=== PATIENT | female | born 1955 | race Caucasian/White ===

== ENCOUNTER 2020-01-13 12:30 | Inpatient (IN) | payer MEDICARE, MEDICAID, SELFPAY ==
[2020-01-13] VITALS (14 sets, daily range): BP systolic 100–125; BP diastolic 46–74; PULSE 59–69; RESP 15–21; TEMP 36.1–37.1; O2SAT 82–99; BMI 33.7
--- NOTE | ~2020-01-13 | XR_ITS ---
XR chest 1V portable DATE: 01/13/2020 13:15 INDICATION: Covid 19. History of lobectomy. TECHNIQUE: Portable upright AP chest on 01/13/2020 at 1309 hours COMPARISON: 03/03/2015 portable AP chest at 2225 hours FINDINGS: There is volume loss of the left lung and asymmetric prominence in the left perihilar area; there is history of previous lobectomy. The appearance may be postsurgical. Residual or recurrent ne oplasm or adenopathy cannot be excluded based upon this limited single portable radiographic view. There is diffuse interstitial infiltrate throughout most of the right lung, sparing only the apical a ramirez. Heart size is borderline enlarged. Is aortic calcification. The right-sided infiltrate is new since , suggesting acute interstitial pneumonitis. Interstitial edema is an additional consideratio n. There is mild prominence of the minor fissure. No pleural effusion is noted. Diffuse osteopenia IMPRESSION: Interstitial infiltrate throughout most of the right lung, relatively sparing only the ap ex; findings suggest interstitial pneumonitis (pneumonia) versus interstitial edema. Postoperative change on the left with asymmetric prominence of the left hilum; this may be postsurgic al change, but recurrent or new left hilar mass or adenopathy is not excluded based upon this limited single portable radiographic view Reviewed, dictated and finalized at location [facility]. ECT MANAGER/TEAM COACH IMPRESSION: Interstitial infiltrate throughout most of the right lung, relative ly sparing only the apex; findings suggest interstitial pneumonitis (pneumonia) versus interstitial edema. Postoperative change on the left with asymmetric prominence of the left hilum; this may be postsurgical change, but recurrent or new left hilar mass or adenop athy is not excluded based upon this limited single portable radiographic view
--- NOTE | ~2020-01-13 | CT_ITS ---
EXAMINATION: CTA chest PE protocol DATE: 01/13/2020 13:58 INDICATION: Shortness of breath for 3 days, cough. Covid-positive. History of lobectomy. TECHNIQUE: Computed tomography angiography (CTA) of the chest was performed with 100 mL Omnipaque-350 intravenous contrast timed to evaluate the pulmonary arteries. Coronal maximum intensity projection 3D-reconstructions were created by the technologist. Automated exposure control and iterative reconst ruction technique were employed. Exam dose: 780.71 mGy-cm total exam DLP. COMPARISON: 01/13/2020 portable AP chest FINDINGS: There is diagnostic contrast enhancement of the pulmonary arteries and no evidence of pulmo nary embolism. Status post left upper lobectomy. There is prominent soft tissue density in the left perihilar, which may be due to perihilar postoperative radiation fibrosis; recurrent or new perihilar malignancy is n ot excluded. There is soft tissue prominence in the subcarinal area and right hilum, consistent with mild to moderate subcarinal and right hilar lymphadenopathy; differential diagnosis includes reactive lymphadenopathy secondary to pneumonia versus metastatic disease as well as lymphoma.. Comparison wi th prior CT examinations is recommended. Consider PET/CT scan as clinically appropriate after resolut ion of the current infiltrates. The thyroid gland appears normal. There is atherosclerotic change of the thoracic and abdominal aorta and at the origins of celiac and superior mesenteric arteries. No thoracic aortic aneurysm or dissec tion is detected. There are extensive reticular cystic appearing interstitial infiltrates with predilection for the per iphery of the lung guzmán, involving right upper, middle and lower lobes. There is mild peripheral in terstitial infiltrate of the left lower lobe. Mild to moderate sliding hiatal hernia. Status post cholecystectomy. Degenerative spurring of the thoracic spine. No suspicious osteolytic or osteoblastic lesions are not ed. IMPRESSION: Extensive predominantly peripheral interstitial reticular infiltrates of the lungs, righ t greater than left No evidence of pulmonary embolism Left perihilar soft tissue thickening which may be secondary to radiation treatment. Recurrent or new malignancy or adenopathy are not excluded. Subcarinal and right hilar mild lymphadenopathy;differential diagnosis includes reactive lymphadenopa thy from pneumonia versus metastatic disease or lymphoma Reviewed, dictated and finalized at [facility]. Reviewed, dictated and finalized at location A. IRING CALIBRATOR IMPRESSION: Extensive predominantly peripheral interstitial reticular infiltra erik of the lungs, right greater than left No evidence of pulmonary embolism Left perihilar soft tissue thickening which may be secondary to radiation treat ment. Recurrent or new malignancy or adenopathy are not excluded. Subcarinal and right hilar mild lymphadenopathy;differential diagnosis includes reactive lymphadenopathy from pneumonia versus metastatic disease or lymphoma
--- NOTE | 2020-01-13 12:34 | ED.SOB ---
HPI - SOB/Dyspnea General Chief Complaint: Shortness of Breath/Dyspnea Stated Complaint: COVID+ SOB HX COPD Time Seen by Provider: 01/13/20 12:34 Source: patient Mode of arrival: wheelchair Limitations: no limitations History of Present Illness HPI Narrative: Patient is a 64-year-old female with a history of lung cancer, lobectomy, recent hip surgery at [facility] earlier this month, recent diagnosis of Covid on January 07, who presents for evaluation of increased shortness of breath. Patient states she has been unable to catch her breath with any activity. She has had increased work of breathing especially worse with exertion. She is denying any chest pain. Intermittent fever, chills, nausea. Diarrhea she had last week has now resolved. Patient denies any loss of sense of taste or smell but does report decreased oral intake, states due to the nausea she has only been able to tolerate minimal fluids and crackers over the past 2 weeks. Patient with numerous sick contacts in her family including a significant other who is currently admitted to this hospital, 5+ family contacts including her daughter. Related Data Allergies Allergy/AdvReac Type Severity Reaction Status Date / Time No Known Allergies Allergy Verified 01/13/20 12:55 Review of Systems Review of Systems: Narrative: CONSTITUTIONAL: Remittent fever and chills EYES: Denies visual changes, redness, or discharge. ENT: Reports mild rhinorrhea and congestion CARDIOVASCULAR: Denies chest pain, palpitations, or edema. RESPIRATORY: Reports dry cough and shortness of breath GASTROINTESTINAL: Denies abdominal pain, reports nausea, diarrhea has resolved GENITOURINARY: Denies dysuria or hematuria. SKIN: Denies rash or itching. MUSCULOSKELETAL: Denies back pain, joint pain, or myalgia. NEUROLOGIC: Reports feeling diffusely weak PMFSH Past Medical History Medical History (Updated 01/13/20 @ 14:47 by Adeline Sprague MD) COPD (chronic obstructive pulmonary disease) Fibromyalgia Lung cancer Pulmonary embolism Surgical History Surgical History (Updated 01/13/20 @ 12:54 by Adeline Sprague MD) Status post hip surgery Status post partial lobectomy of lung Social History Social History (Updated 01/13/20 @ 12:54 by Adeline Sprague MD) Smoking status: Former smoker Alcohol intake: never Substance use: never Living arrangements: with family Gender identity (if verbalized by the patient): Female Course Vital Signs Vital signs: Vital Signs Pulse Rate 69 01/13/20 12:43 Respiratory Rate 19 01/13/20 12:43 Temperature 37.1 C 01/13/20 12:51 Pulse Rate 65 01/13/20 13:32 Respiratory Rate 21 H 01/13/20 13:32 Blood Pressure 121/61 01/13/20 13:32 Pulse Oximetry 92 01/13/20 13:32 MDM - SOB/Dyspnea MDM Narrative Medical decision making narrative: Patient presented for evaluation of shortness of breath, in the setting of recent Covid diagnosis. The time of assessment, patient is hypoxic, no tachycardia, afebrile. Patient is dehydrated appearing. IV access obtained and labs are drawn. Patient was placed on 4 L via nasal cannula with improvement in oxygenation. Patient laboratory results notable for anemia. Pt denying any dark tarry stools. This may be secondary to anemia chronic disease concurrent with recent surgery/hospitalization. Pt with chronic kidney disease. Hyponatremia. Mild metabolic acidosis without elevation in anion gap or evidence of DKA. Likely this is all secondary to patient's decreased oral intake and dehydration. Patient chest x-ray with chronic findings consistent with left lobectomy, patchy bilateral infiltrates. CTA shows no evidence for PE. I wanted to obtain this given patient's recent surgical history and decreased mobility. Patient to be admitted to hospitalist service for hyponatremia, dehydration, hypoxic respiratory failure in setting of Covid viral illness. Differential Diagnosis Differential diag
--- NOTE | 2020-01-13 12:51 | ECG_ITS ---
Measurements Intervals [place] Rate: 58 P: 79 DE: 154 QRS: -4 QRSD: 105 T: 65 QT: 402 QTc: 397 Interpretive Statements SINUS BRADYCARDIA DELAYED PRECORDIAL R/S TRANSITION BASELINE ARTIFACT- I, II, III, AVR, AVL, AVF BORDERLINE ECG Electronically Signed On 01-13-2020 16:08:35 DRYWALL STRIPPER HELPER by Chato Edwards D.O.
[2020-01-13] MEDS: ONDANSETRON INJ 4 MG/2 ML VIAL IV PUSH (13:05)
[2020-01-13] MEDS: SODIUM CHLORIDE 0.9% IV 500 ML 999 ML IV CONT (13:06)
[2020-01-13 13:09] LABS: Alveolar/Arterial O2 Gradient 200.4 mmHg; Base Excess ABG -4.8 mEq/l (+/-2.0); Carboxyhemoglobin 0.6 % THb (0-2.0); Fractional Inspired Oxygen 44 %; HCO3 ABG 19.4 mEq/l (22.0-26.0); Methemoglobin ABG 0.1 %THb (0-1.5); Oxygen Content ABG 11.7 %vol (16.0-22.0); Oxygen Saturation ABG 95.5 % (95.0-100.0); Oxyhemoglobin 93.7 % THb (90.0-100.0); PCO2 ABG 32.2 mmHg (35.0-45.0); PO2 ABG 76.6 mmHg (80.0-100.0); PO2 FiO2 Ratio Arterial Blood 1.74 %; Reduced Hemoglobin 5.6 %THb (0-5.0); Total Hemoglobin 8.8 g/dL (12.0-18.0); pH ABG 7.397 (7.350-7.450)
[2020-01-13 13:10] LABS: Device NASAL CANNULA; Site Drawn LEFT BRACHIAL
[2020-01-13 13:21] LABS: Basophils Percent Auto 0.2 % (0.2-1.2); Hematocrit 26.9 % (37.0-47.0); Hemoglobin 8.4 g/dL (12.0-15.0); Immature Granulocyte Absolute 0.03 K/mm3 (0.00-0.031); Immature Granulocyte Percent A 0.7 % (0-0.5); Lymphocytes Absolute Auto 0.67 K/mm3 (0.9-3.2); Mean Corpuscular HGB Conc 31.2 g/dl (32-36); Mean Corpuscular Hemoglobin 25.8 pg (26-34); Mean Corpuscular Volume 82.8 fl (80-100); Mean Platelet Volume 9.6 fl (7.4-10.4); Monocytes Absolute Auto 0.6 K/mm3 (0.1-0.6); Neutrophils Absolute Auto 3.2 K/mm3 (1.3-6.7); Neutrophils Percent Auto 71.1 % (45.5-73.1); Platelet Count Result 295 k/mm3 (150-375); Red Blood Count 3.25 M/mm3 (4.2-5.4); Red Cell Distribution Width 19.6 % (11.5-14.5); White Blood Count 4.5 K/mm3 (4.5-10.0)
[2020-01-13 13:35] LABS: Lactate Dehydrogenase 891 U/L (313-618); Prothrombin Time 13.4 Seconds (11.1-14.7)
[2020-01-13 13:36] LABS: Partial Thromboplastin Time 27.9 SECONDS (22.3-36.8)
[2020-01-13 13:38] LABS: Alanine Aminotransferase 10 U/L (4-35); Albumin Level 3.5 g/dL (3.5-5.1); Alkaline Phosphatase 93 U/L (38-126); Anion Gap 12 mmol/L (8-16); Aspartate Amino Transferase 39 U/L (14-36); Bilirubin,Total 0.8 mg/dL (0.2-1.3); Blood Urea Nitrogen 26 mg/dL (7-17); CRP 7.6 mg/dL (<1.0); Calcium 8.5 mg/dL (8.4-10.2); Carbon Dioxide 20 mmol/L (22-30); Chloride 93 mmol/L (98-107); Estimated CRCL calculation 39 ml/min; Estimated Glomerular Filt Rate 32; Glucose 124 mg/dL (65-105); Potassium 4.4 mmol/L (3.4-5.0); Sodium 125 mmol/L (137-145)
[2020-01-13 13:45] LABS: Troponin I < 0.012 ng/mL (0.000-0.034)
--- NOTE | 2020-01-13 19:03 | PC.NURSE ---
[id number] This patient, Graciela Alberto, was admitted to 3 [facility] Surg Room 322-01. Patient/family oriented to hospital policies and general routines including ID bracelet, bed and alarms, visiting hours, pain management, procedures, bathroom and other care routines, personal items, smoking policy, room service/diet, and visiting hours. Information on how to activate the Rapid Response Team has been discussed. Patient/Family are encouraged to report perceived risks to care and to ask questions if they do not understand what they are told or what they should do.
--- NOTE | 2020-01-13 22:00 | PM.IMHP ---
H&P: HPI History of Present Illness Date/Time: 01/13/20 22:00 Chief complaint: Shortness of breath, COVID positive on 01/06/20. Narrative: Graciela Alberto is a 64-year-old female, former heavy smoker, with history of lung cancer status post left upper lobectomy, pulmonary embolism, rheumatoid arthritis on immunosuppressants, hypertension, and COPD visit to the emergency department earlier today via private vehicle from home with complaints of shortness of breath. About 3 weeks ago she had her left hip replaced per Dr. Louis at [facility] and she has been doing pretty well in that regard. Unfortunately about a week and a half ago she began demonstrating symptoms of COVID to include headache, sinus congestion, decreased appetite, diarrhea, nonproductive cough, and shortness of breath. Her significant other and several other family members have COVID, and she indeed tested positive on 01/06/2020. Over the past couple of days she has had progressive dyspnea on lesser and lesser exertion and is just feeling weak and dehydrated, reportedly she has only been able to tolerate minimal fluids and some crackers were the last week or so. She has not had a recent fever and denies headache, sore throat, rash, chest pain, pleuritic pain, orthopnea, PND, lower extremity edema, and vomiting. Review of Systems Review of Systems: Narrative: Twelve systems were reviewed with pertinent positives and negatives as per HPI. She has not had a fever for several days. She is currently taking an iron supplementation, presumably from acute blood loss anemia from her recent hip replacement. She is taking Xarelto for DVT prophylaxis, and has not noticed any blood in her stools. No abdominal or epigastric pain. She denies bloating. No significant indigestion or history of peptic ulcers. Except as documented, all other systems were reviewed and are negative. [facility] Past Medical History Medical History (Updated 01/13/20 @ 23:22 by Cha Wu PA-C) Chronic kidney disease, stage 3 Baseline creatinine is about 1.50. Chronic obstructive pulmonary disease Depression Fibromyalgia Former smoker Smoked 2 packs a day for 45 years, quit in 2016. Immunosuppressed status On methotrexate for rheumatoid arthritis. Lung cancer (~2014) Status post chemotherapy, radiation, and left upper lobectomy. Obstructive sleep apnea No longer wearing CPAP. Pulmonary embolism (~02/2015) Rheumatoid arthritis Surgical History Surgical History (Updated 01/13/20 @ 23:15 by Cha Wu PA-C) History of cholecystectomy (~2006) History of sinus surgery History of total left hip arthroplasty (~11/2019) Status post partial lobectomy of lung Left upper lobectomy for lung cancer. Family History Family History (Updated 01/13/20 @ 23:15 by Cha Wu PA-C) Other Hypertension Social History Social History (Updated 01/13/20 @ 23:16 by Cha Wu PA-C) Social History: Surrogate decision maker: Celina and Victoriano Marroquin, children. Code status: Full code. Smoking packs per day: 2 Smoking cigarettes per day: 40.0 Years smoked: 45 Smoking pack-years: 90.00 Smoking status: Former smoker Alcohol intake: never Substance use: never Additional living arrangements comments: Patient lives in her own home in [place]. Additional occupation/education comments: On disability. Gender identity (if verbalized by the patient): Female Spiritual care concerns: No Meds Home Medications and Allergies Home Medications Medication Instructions Recorded Confirmed Type acetaminophen 650 mg PO BID PRN 01/13/20 01/13/20 History amlodipine 5 mg PO QPM 01/13/20 01/13/20 History cholecalciferol (vitamin D3) 100 mcg PO DAILY 01/13/20 01/13/20 History cyanocobalamin (vitamin B-12) 500 mcg PO DAILY 01/13/20 01/13/20 History [Vitamin B-12] cyclobenzaprine 5 mg PO DAILY 01/13/20 01/13/20 History ferrous sulfate
[2020-01-13 23:30] LABS: Hematocrit 27.5 % (37.0-47.0); Hemoglobin 8.6 g/dL (12.0-15.0)
[2020-01-13 23:41] LABS: Anion Gap 13 mmol/L (8-16); Blood Urea Nitrogen 23 mg/dL (7-17); Calcium 8.9 mg/dL (8.4-10.2); Carbon Dioxide 21 mmol/L (22-30); Chloride 94 mmol/L (98-107); Estimated CRCL calculation 44 ml/min; Estimated Glomerular Filt Rate 38; Glucose 160 mg/dL (65-105); Potassium 4.4 mmol/L (3.4-5.0); Sodium 128 mmol/L (137-145)
[2020-01-14] VITALS (8 sets, daily range): BP systolic 104–122; BP diastolic 43–70; PULSE 62–73; RESP 18–20; TEMP 36.4–37; O2SAT 90–93; BMI 33.7
[2020-01-14] MEDS: REMDESIVIR 200 MG/NS 250 ML 200 MG/250 ML BAG 250 MG IVPB (00:50)
[2020-01-14] MEDS: HYDROcodone/acetaminophen (*CRX) 7.5-325 MG TABLET 1 TAB PO ×4 (00:50→16:56)
[2020-01-14 01:25] LABS: Thyroid Stimulating Hormone Reflex 0.564 uIU/mL (0.465-4.68)
[2020-01-14 04:32] LABS: Creatinine Urine 25.5 mg/dL
[2020-01-14 04:33] LABS: Sodium Urine Random 13 meq/L
[2020-01-14 07:54] LABS: Basophils Percent Auto 0.3 % (0.2-1.2); Hematocrit 28.1 % (37.0-47.0); Hemoglobin 8.6 g/dL (12.0-15.0); Immature Granulocyte Absolute 0.04 K/mm3 (0.00-0.031); Immature Granulocyte Percent A 1.1 % (0-0.5); Lymphocytes Absolute Auto 0.51 K/mm3 (0.9-3.2); Mean Corpuscular HGB Conc 30.6 g/dl (32-36); Mean Corpuscular Hemoglobin 25.3 pg (26-34); Mean Corpuscular Volume 82.6 fl (80-100); Mean Platelet Volume 9.8 fl (7.4-10.4); Monocytes Absolute Auto 0.5 K/mm3 (0.1-0.6); Monocytes Percent Auto 12.7 % (2.6-8.5); Neutrophils Absolute Auto 2.6 K/mm3 (1.3-6.7); Neutrophils Percent Auto 71.9 % (45.5-73.1); Platelet Count Result 324 k/mm3 (150-375); Red Cell Distribution Width 19.5 % (11.5-14.5); White Blood Count 3.6 K/mm3 (4.5-10.0)
[2020-01-14] MEDS: RIVAROXABAN 10 MG TABLET PO (08:12)
[2020-01-14] MEDS: CHOLECALCIFEROL 1,000 UNITS TABLET 2000 UNITS PO (08:12)
[2020-01-14] MEDS: FOLIC ACID 1 MG TABLET PO (08:12)
[2020-01-14] MEDS: CYCLOBENZAPRINE HCL 5 MG TABLET PO (08:12)
[2020-01-14] MEDS: GABAPENTIN 300 MG CAPSULE 900 MG PO ×3 (08:13→16:53)
[2020-01-14] MEDS: FERROUS SULFATE 324 MG TABLET PO (08:14)
[2020-01-14] MEDS: CYANOCOBALAMIN 500 MCG TABLET PO (08:14)
[2020-01-14] MEDS: PRAVASTATIN SODIUM 20 MG TABLET 40 MG PO (08:14)
[2020-01-14] MEDS: DEXAMETHASONE SOD PHOS INJ 4 MG/ML VIAL 6 MG IV PUSH (08:15)
[2020-01-14 08:17] LABS: Alanine Aminotransferase 13 U/L (4-35); Albumin Level 3.5 g/dL (3.5-5.1); Alkaline Phosphatase 96 U/L (38-126); Anion Gap 10 mmol/L (8-16); Aspartate Amino Transferase 29 U/L (14-36); Bilirubin,Total 0.6 mg/dL (0.2-1.3); Blood Urea Nitrogen 23 mg/dL (7-17); CRP 8.2 mg/dL (<1.0); Calcium 9.1 mg/dL (8.4-10.2); Carbon Dioxide 22 mmol/L (22-30); Chloride 98 mmol/L (98-107); Estimated CRCL calculation 47 ml/min; Estimated Glomerular Filt Rate 41; Glucose 140 mg/dL (65-105); Lactate Dehydrogenase 647 U/L (313-618); Magnesium 2.2 mg/dL (1.6-2.3); Potassium 4.3 mmol/L (3.4-5.0); Sodium 130 mmol/L (137-145)
[2020-01-14 08:25] LABS: Hypochromasia 1+ (NORMAL); Ovalocytes 1+ (NORMAL); Platelet Estimate Adequate (Adequate); Poikilocytosis 1+ (NORMAL)
[2020-01-14] MEDS: BUDESONIDE/FORMOTEROL (*SP) 160-4.5 MCG 6 GM INH 2 PUFF INHALATION ×2 (10:19→21:58)
--- NOTE | 2020-01-14 13:29 | P.PNIM_ITS ---
Progress Note: A&P Assessment and Plan (1) Acute respiratory failure with hypoxia: Code(s): J96.01 - Acute respiratory failure with hypoxia <Felipa March PA-C - Last Filed: 01/14/20 14:04> Status: Acute <ANDRAE KayeC - Last Filed: 01/14/20 14:04> Assessment and Plan: patient noted to be hypoxic upon arrival at 82%. felt to be secondary to COVID-19 pneumonia. She is currently requiring 4 L O2 per nasal cannula and maintaining adequate oxygen saturations. * Continue supplemental O2 as needed with goal saturation 90% or above. Weaned to goal. * Continue treatment for COVID-19 as below. <Felipa March PA-C - Last Filed: 01/14/20 14:04> (2) Pneumonia due to COVID-19 virus: Code(s): U07.1 - COVID-19; J12.89 - Other viral pneumonia <Felipa March PA-C - Last Filed: 01/14/20 14:04> Status: Acute <ANDRAE KayeC - Last Filed: 01/14/20 14:04> Assessment and Plan: Symptom onset approximately 1 week prior to presentation. Patient tested positive on 01/06/2020. * continue Remdesivir for up to 5 days. Started on 01/13. * Continue dexamethasone for up to 10 days. Started on 01/13 * supplemental O2 as noted above. Continuous pulse ox monitoring given increased O2 requirements * supportive care to include bronchodilators, expectorants, and antipyretics * trend acute phase reactants <Felipa March PA-C - Last Filed: 01/14/20 14:04> (3) Chronic obstructive pulmonary disease: Code(s): J44.9 - Chronic obstructive pulmonary disease, unspecified <Felipa March PA-C - Last Filed: 01/14/20 14:04> Status: Acute <ANDRAE KayeC - Last Filed: 01/14/20 14:04> Assessment and Plan: chronic. Not felt to be in acute exacerbation. * Supplemental O2 as above. * Continue Symbicort * Albuterol prn <QI Kaye-Mary - Last Filed: 01/14/20 14:04> (4) Acute dehydration: Code(s): E86.0 - Dehydration <Felipa March, PA-C - Last Filed: 01/14/20 14:04> Status: Acute <Felipa March, PA-C - Last Filed: 01/14/20 14:04> Assessment and Plan: patient noted poor oral intake for greater than 1 week. Noted to be dry upon presentation. She was rehydrated with 1 L IV normal saline. She appears euvolemic at this time. * No further fluids. <Felipa March, PA-C - Last Filed: 01/14/20 14:04> (5) Acute hyponatremia: Code(s): E87.1 - Hypo-osmolality and hyponatremia <Felipa March, PA-C - Last Filed: 01/14/20 14:04> Status: Acute <Felipa March, PA-C - Last Filed: 01/14/20 14:04> Assessment and Plan: [place] to be secondary to dehydration. Sodium has improved following IV fluid rehydration. Stable at 130 today. * Monitor BMP daily <Felipa March, PA-C - Last Filed: 01/14/20 14:04> (6) Chronic kidney disease, stage 3: Code(s): N18.30 - Chronic kidney disease, stage 3 unspecified <Felipa March, PA-C - Last Filed: 01/14/20 14:04> Status: Inactive <Felipa March, PA-C - Last Filed: 01/14/20 14:04> Assessment and Plan: creatinine appears consistent with her baseline. * Monitor renal function closely. Renally dose medications and avoid nephrotoxic agents. <Feilpa MuseRegi Melisayolanda, PA-C - Last Filed: 01/14/20 14:04> (7) Immunosuppressed status: Code(s): D84.9 - Immunodeficiency, unspecified <Felipa Vincentyolanda, PA-C - Last Filed: 01/14/20 14:04> S
--- NOTE | 2020-01-14 13:29 | PM.IMPN ---
Progress Note: A&P Assessment and Plan (1) Acute respiratory failure with hypoxia: Code(s): J96.01 - Acute respiratory failure with hypoxia <Felipa March PA-C - Last Filed: 01/14/20 14:04> Status: Acute <ANDRAE KayeC - Last Filed: 01/14/20 14:04> Assessment and Plan: patient noted to be hypoxic upon arrival at 82%. felt to be secondary to COVID-19 pneumonia. She is currently requiring 4 L O2 per nasal cannula and maintaining adequate oxygen saturations. Continue supplemental O2 as needed with goal saturation 90% or above. Weaned to goal. Continue treatment for COVID-19 as below. <Felipa March PA-C - Last Filed: 01/14/20 14:04> (2) Pneumonia due to COVID-19 virus: Code(s): U07.1 - COVID-19; J12.89 - Other viral pneumonia <Felipa March PA-C - Last Filed: 01/14/20 14:04> Status: Acute <ANDRAE KayeC - Last Filed: 01/14/20 14:04> Assessment and Plan: Symptom onset approximately 1 week prior to presentation. Patient tested positive on 01/06/2020. continue Remdesivir for up to 5 days. Started on 01/13. Continue dexamethasone for up to 10 days. Started on 01/13 supplemental O2 as noted above. Continuous pulse ox monitoring given increased O2 requirements supportive care to include bronchodilators, expectorants, and antipyretics trend acute phase reactants <ANDRAE KayeC - Last Filed: 01/14/20 14:04> (3) Chronic obstructive pulmonary disease: Code(s): J44.9 - Chronic obstructive pulmonary disease, unspecified <Felipa March PA-C - Last Filed: 01/14/20 14:04> Status: Acute <ANDRAE KayeC - Last Filed: 01/14/20 14:04> Assessment and Plan: chronic. Not felt to be in acute exacerbation. Supplemental O2 as above. Continue Symbicort Albuterol prn <ANDRAE KayeC - Last Filed: 01/14/20 14:04> (4) Acute dehydration: Code(s): E86.0 - Dehydration <Felipa March, PA-C - Last Filed: 01/14/20 14:04> Status: Acute <Felipaanna March, PA-C - Last Filed: 01/14/20 14:04> Assessment and Plan: patient noted poor oral intake for greater than 1 week. Noted to be dry upon presentation. She was rehydrated with 1 L IV normal saline. She appears euvolemic at this time. No further fluids. <Felipa Vincentac, PA-C - Last Filed: 01/14/20 14:04> (5) Acute hyponatremia: Code(s): E87.1 - Hypo-osmolality and hyponatremia <Felipa Chelsea March, PA-C - Last Filed: 01/14/20 14:04> Status: Acute <Felipaanna Vincentac, PA-C - Last Filed: 01/14/20 14:04> Assessment and Plan: [place] to be secondary to dehydration. Sodium has improved following IV fluid rehydration. Stable at 130 today. Monitor BMP daily <Felipa March, PA-C - Last Filed: 01/14/20 14:04> (6) Chronic kidney disease, stage 3: Code(s): N18.30 - Chronic kidney disease, stage 3 unspecified <Felipaanna March, PA-C - Last Filed: 01/14/20 14:04> Status: Inactive <Felipaanna March, PA-C - Last Filed: 01/14/20 14:04> Assessment and Plan: creatinine appears consistent with her baseline. Monitor renal function closely. Renally dose medications and avoid nephrotoxic agents. <Felipa Vincentac, PA-C - Last Filed: 01/14/20 14:04> (7) Immunosuppressed status: Code(s): D84.9 - Immunodeficiency, unspecified <Felipaanna Vincentac, PA-C - Last Filed: 01/14/20 14:04> Status: Inactive <Felipa Chelsea Vincentac, PA-C - Last Filed: 01/14/20 14:04> Assessment and Plan: Patient on weekly methotrexate for management of rheumatoid arthritis. Methotrexate on hold in light of acute infection <Felipa March PA-C - Last Filed: 01/14/20 14:04> (8) Rheumatoid arthritis: Code(s): M06.9 - Rheumatoid arthritis, uns
[2020-01-14] MEDS: amLODIPine BESYLATE 5 MG TABLET PO (16:54)
[2020-01-14] MEDS: lisinopriL 10 MG TABLET PO (16:58)
[2020-01-14] MEDS: REMDESIVIR 100 MG/NS 250 ML 100 MG/250 ML BAG 250 MG IVPB (22:30)
[2020-01-15] VITALS (11 sets, daily range): BP systolic 104–129; BP diastolic 49–71; PULSE 61–75; RESP 20–22; TEMP 36.1–36.5; O2SAT 88–91
[2020-01-15] MEDS: HYDROcodone/acetaminophen (*CRX) 7.5-325 MG TABLET 1 TAB PO ×5 (00:23→23:26)
[2020-01-15] MEDS: ALBUTEROL SULFATE (*SP) AEROSOL 1 PUFF 2 PUFF INHALATION (05:28)
[2020-01-15 06:48] LABS: Alanine Aminotransferase 12 U/L (4-35)
[2020-01-15] MEDS: CYANOCOBALAMIN 500 MCG TABLET PO (08:59)
[2020-01-15] MEDS: CHOLECALCIFEROL 1,000 UNITS TABLET 2000 UNITS PO (08:59)
[2020-01-15] MEDS: ENOXAPARIN 40 MG/0.4 ML SYRINGE SUB-Q (08:59)
[2020-01-15] MEDS: PRAVASTATIN SODIUM 20 MG TABLET 40 MG PO (08:59)
[2020-01-15] MEDS: DEXAMETHASONE SOD PHOS INJ 4 MG/ML VIAL 6 MG IV PUSH (09:00)
[2020-01-15] MEDS: CYCLOBENZAPRINE HCL 5 MG TABLET PO (09:00)
[2020-01-15] MEDS: FERROUS SULFATE 324 MG TABLET PO (09:00)
[2020-01-15] MEDS: FOLIC ACID 1 MG TABLET PO (09:00)
[2020-01-15] MEDS: guaiFENesin 12 HR 600 MG TABCR PO ×2 (09:00→21:20)
[2020-01-15] MEDS: BUDESONIDE/FORMOTEROL (*SP) 160-4.5 MCG 6 GM INH 2 PUFF INHALATION ×2 (09:45→21:15)
[2020-01-15 10:17] LABS: Estimated CRCL calculation 50 ml/min; Estimated Glomerular Filt Rate 45
[2020-01-15] MEDS: GABAPENTIN 300 MG CAPSULE PO ×3 (11:20→21:20)
[2020-01-15 11:42] LABS: Hematocrit 27.1 % (37.0-47.0); Hemoglobin 8.3 g/dL (12.0-15.0); Mean Corpuscular HGB Conc 30.6 g/dl (32-36); Mean Corpuscular Hemoglobin 25.8 pg (26-34); Mean Corpuscular Volume 84.2 fl (80-100); Mean Platelet Volume 9.3 fl (7.4-10.4); Platelet Count Result 387 k/mm3 (150-375); Red Blood Count 3.22 M/mm3 (4.2-5.4); Red Cell Distribution Width 19.7 % (11.5-14.5); White Blood Count 7.2 K/mm3 (4.5-10.0)
[2020-01-15 11:57] LABS: Anion Gap 12 mmol/L (8-16); Blood Urea Nitrogen 28 mg/dL (7-17); Calcium 9.2 mg/dL (8.4-10.2); Carbon Dioxide 21 mmol/L (22-30); Chloride 99 mmol/L (98-107); Estimated CRCL calculation 50 ml/min; Estimated Glomerular Filt Rate 45; Glucose 118 mg/dL (65-105); Potassium 4.5 mmol/L (3.4-5.0); Sodium 132 mmol/L (137-145)
--- NOTE | 2020-01-15 15:26 | P.PNIM_ITS ---
Progress Note: A&P Assessment and Plan (1) Acute respiratory failure with hypoxia: Code(s): J96.01 - Acute respiratory failure with hypoxia <Felipa MichaRegi March, PA-C - Last Filed: 01/15/20 15:43> Status: Acute <Felipa Chelsea Stimac, PA-C - Last Filed: 01/15/20 15:43> Assessment and Plan: Patient noted to be hypoxic upon arrival at 82%. [place] to be multifactorial secondary to COVID-19 pneumonia, COPD, and history of lung cancer with partial lobectomy and possible recurrence of lung cancer. She is currently requiring 6 L O2 per nasal cannula and maintaining adequate oxygen saturations. * Continue supplemental O2 as needed with goal saturation 90% or above. Wean to goal. * Continue treatment for COVID-19 as below. * Consider pulmonology consult given her extensive history if further increased O2 requirements. <Felipa March, PA-C - Last Filed: 01/15/20 15:43> (2) Pneumonia due to COVID-19 virus: Code(s): U07.1 - COVID-19; J12.89 - Other viral pneumonia <Felipa J. Melisaac, PA-C - Last Filed: 01/15/20 15:43> Status: Acute <Felipa MichaRegi Stimac, PA-C - Last Filed: 01/15/20 15:43> Assessment and Plan: Symptom onset approximately 1 week prior to presentation. Patient tested positive on 01/06/2020. * continue Remdesivir for up to 5 days. Started on 01/13. * Continue dexamethasone for up to 10 days. Started on 01/13 * supplemental O2 as noted above. Continuous pulse ox monitoring given increased O2 requirements * supportive care to include bronchodilators, expectorants, and antipyretics * trend acute phase reactants <Felipa Chelsea March, PA-C - Last Filed: 01/15/20 15:43> (3) Chronic obstructive pulmonary disease: Code(s): J44.9 - Chronic obstructive pulmonary disease, unspecified <Felipa J. Melisaac, PA-C - Last Filed: 01/15/20 15:43> Status: Acute <Felipa JRegi Stimac, PA-C - Last Filed: 01/15/20 15:43> Assessment and Plan: Chronic. Not felt to be in acute exacerbation. * Supplemental O2 as above. * Continue Symbicort * Albuterol prn <Felipa MuseQI Nance-C - Last Filed: 01/15/20 15:43> (4) Acute dehydration: Code(s): E86.0 - Dehydration <Felipa Vincentyolanda PA-C - Last Filed: 01/15/20 15:43> Status: Acute <Felipa Vincentyolanda QI-C - Last Filed: 01/15/20 15:43> Assessment and Plan: Patient described poor oral intake for greater than 1 week. Noted to be dry upon presentation. She was rehydrated with 1 L IV normal saline. She appears euvolemic upon my exam. * Monitor volume status closely. <Felipa MuseQI Nance-C - Last Filed: 01/15/20 15:43> (5) Acute hyponatremia: Code(s): E87.1 - Hypo-osmolality and hyponatremia <Felipa MuseRegi March QI-C - Last Filed: 01/15/20 15:43> Status: Acute <Felipa Vincentyolanda PA-C - Last Filed: 01/15/20 15:43> Assessment and Plan: [place] to be secondary to dehydration. Sodium has improved following IV fluid rehydration. Stable at 132 today. * Monitor BMP daily <Felipa MuseRegi March QI-C - Last Filed: 01/15/20 15:43> (6) Chronic kidney disease, stage 3: Code(s): N18.30 - Chronic kidney disease, stage 3 unspecified <Felipa JRegi March QI-C - Last Filed: 01/15/20 15:43> Status: Inactive <Felipa MichaRegi March PA-C - Last Filed: 01/15/20 15:43> Assessment and Plan: creatinine appears consistent with her baseline. * Monitor renal function closely. Renally dose medications and avoid ne phrotoxic agents.
--- NOTE | 2020-01-15 15:26 | PM.IMPN ---
Progress Note: A&P Assessment and Plan (1) Acute respiratory failure with hypoxia: Code(s): J96.01 - Acute respiratory failure with hypoxia <Felipa Chelsea March PA-C - Last Filed: 01/15/20 15:43> Status: Acute <Felipa MuseRegi March, PA-C - Last Filed: 01/15/20 15:43> Assessment and Plan: Patient noted to be hypoxic upon arrival at 82%. [place] to be multifactorial secondary to COVID-19 pneumonia, COPD, and history of lung cancer with partial lobectomy and possible recurrence of lung cancer. She is currently requiring 6 L O2 per nasal cannula and maintaining adequate oxygen saturations. Continue supplemental O2 as needed with goal saturation 90% or above. Wean to goal. Continue treatment for COVID-19 as below. Consider pulmonology consult given her extensive history if further increased O2 requirements. <Felipa March, PA-C - Last Filed: 01/15/20 15:43> (2) Pneumonia due to COVID-19 virus: Code(s): U07.1 - COVID-19; J12.89 - Other viral pneumonia <Felipa Chelsea March, PA-C - Last Filed: 01/15/20 15:43> Status: Acute <Felipa JRegi March PA-C - Last Filed: 01/15/20 15:43> Assessment and Plan: Symptom onset approximately 1 week prior to presentation. Patient tested positive on 01/06/2020. continue Remdesivir for up to 5 days. Started on 01/13. Continue dexamethasone for up to 10 days. Started on 01/13 supplemental O2 as noted above. Continuous pulse ox monitoring given increased O2 requirements supportive care to include bronchodilators, expectorants, and antipyretics trend acute phase reactants <Felipa March, PA-C - Last Filed: 01/15/20 15:43> (3) Chronic obstructive pulmonary disease: Code(s): J44.9 - Chronic obstructive pulmonary disease, unspecified <Felipa March, PA-C - Last Filed: 01/15/20 15:43> Status: Acute <Felipa March PA-C - Last Filed: 01/15/20 15:43> Assessment and Plan: Chronic. Not felt to be in acute exacerbation. Supplemental O2 as above. Continue Symbicort Albuterol prn <FelipaQI Blunt-C - Last Filed: 01/15/20 15:43> (4) Acute dehydration: Code(s): E86.0 - Dehydration <Felipa Tran Anca PA-C - Last Filed: 01/15/20 15:43> Status: Acute <Felipa Tran Anca PA-C - Last Filed: 01/15/20 15:43> Assessment and Plan: Patient described poor oral intake for greater than 1 week. Noted to be dry upon presentation. She was rehydrated with 1 L IV normal saline. She appears euvolemic upon my exam. Monitor volume status closely. <Felipa MuseRegi March PA-C - Last Filed: 01/15/20 15:43> (5) Acute hyponatremia: Code(s): E87.1 - Hypo-osmolality and hyponatremia <Felipa March PA-C - Last Filed: 01/15/20 15:43> Status: Acute <Felipa MuseRegi March PA-C - Last Filed: 01/15/20 15:43> Assessment and Plan: [place] to be secondary to dehydration. Sodium has improved following IV fluid rehydration. Stable at 132 today. Monitor BMP daily <Felipa MichaQI Nance-C - Last Filed: 01/15/20 15:43> (6) Chronic kidney disease, stage 3: Code(s): N18.30 - Chronic kidney disease, stage 3 unspecified <Felipa March PA-C - Last Filed: 01/15/20 15:43> Status: Inactive <Felipa MichaRegi March PA-C - Last Filed: 01/15/20 15:43> Assessment and Plan: creatinine appears consistent with her baseline. Monitor renal function closely. Renally dose medications and avoid nephrotoxic agents. <Felipa MichaRegi March PA-C - Last Filed: 01/15/20 15:43> (7) Immunosuppressed status: Code(s): D84.9 - Immunodeficiency, unspecified <Felipa March PA-C - Last Filed: 01/15/20 15:43> Status: Inactive <Felipaanna March PA-C - Last Filed: 01/15/20 15:43> Assessment and Plan: Patient on weekly methotrexate for management
[2020-01-15] MEDS: amLODIPine BESYLATE 5 MG TABLET PO (17:08)
[2020-01-15] MEDS: lisinopriL 10 MG TABLET PO (17:08)
[2020-01-15] MEDS: DOCUSATE SODIUM 100 MG CAPSULE PO (21:20)
[2020-01-15] MEDS: REMDESIVIR 100 MG/NS 250 ML 100 MG/250 ML BAG 250 MG IVPB (23:26)
[2020-01-16] VITALS (11 sets, daily range): BP systolic 126–143; BP diastolic 44–55; PULSE 71–80; RESP 18–20; TEMP 36.3–36.7; O2SAT 85–94
[2020-01-16] MEDS: HYDROcodone/acetaminophen (*CRX) 7.5-325 MG TABLET 1 TAB PO ×3 (06:30→17:43)
[2020-01-16 06:47] LABS: Hematocrit 27.8 % (37.0-47.0); Hemoglobin 8.5 g/dL (12.0-15.0); Mean Corpuscular HGB Conc 30.6 g/dl (32-36); Mean Corpuscular Hemoglobin 25.4 pg (26-34); Mean Platelet Volume 9.3 fl (7.4-10.4); Platelet Count Result 446 k/mm3 (150-375); Red Blood Count 3.35 M/mm3 (4.2-5.4); Red Cell Distribution Width 19.7 % (11.5-14.5); White Blood Count 6.8 K/mm3 (4.5-10.0)
[2020-01-16 07:14] LABS: Alanine Aminotransferase 11 U/L (4-35); Albumin Level 3.4 g/dL (3.5-5.1); Alkaline Phosphatase 96 U/L (38-126); Anion Gap 9 mmol/L (8-16); Aspartate Amino Transferase 27 U/L (14-36); Bilirubin,Total 0.6 mg/dL (0.2-1.3); Blood Urea Nitrogen 30 mg/dL (7-17); Calcium 9.1 mg/dL (8.4-10.2); Carbon Dioxide 26 mmol/L (22-30); Chloride 101 mmol/L (98-107); Estimated CRCL calculation 55 ml/min; Estimated Glomerular Filt Rate 50; Glucose 102 mg/dL (65-105); Lactate Dehydrogenase 794 U/L (313-618); Potassium 4.9 mmol/L (3.4-5.0); Sodium 136 mmol/L (137-145)
[2020-01-16] MEDS: CYANOCOBALAMIN 500 MCG TABLET PO (08:39)
[2020-01-16] MEDS: FERROUS SULFATE 324 MG TABLET PO (08:39)
[2020-01-16] MEDS: GABAPENTIN 300 MG CAPSULE PO ×3 (08:39→20:58)
[2020-01-16] MEDS: CHOLECALCIFEROL 1,000 UNITS TABLET 2000 UNITS PO (08:39)
[2020-01-16] MEDS: guaiFENesin 12 HR 600 MG TABCR PO ×2 (08:40→20:58)
[2020-01-16] MEDS: FOLIC ACID 1 MG TABLET PO (08:40)
[2020-01-16] MEDS: DEXAMETHASONE SOD PHOS INJ 4 MG/ML VIAL 6 MG IV PUSH (08:40)
[2020-01-16] MEDS: PRAVASTATIN SODIUM 20 MG TABLET 40 MG PO (08:41)
[2020-01-16] MEDS: ENOXAPARIN 40 MG/0.4 ML SYRINGE SUB-Q ×2 (08:42→20:58)
[2020-01-16] MEDS: DOCUSATE SODIUM 100 MG CAPSULE PO ×2 (08:42→20:58)
[2020-01-16] MEDS: CYCLOBENZAPRINE HCL 5 MG TABLET PO (08:44)
[2020-01-16] MEDS: BUDESONIDE/FORMOTEROL (*SP) 160-4.5 MCG 6 GM INH 2 PUFF INHALATION (09:16)
--- NOTE | 2020-01-16 13:30 | PM.IMPN ---
Progress Note: A&P Assessment and Plan (1) Acute respiratory failure with hypoxia: Code(s): J96.01 - Acute respiratory failure with hypoxia Status: Acute Assessment and Plan: Patient noted to be hypoxic upon arrival at 82%. [place] to be multifactorial secondary to COVID-19 pneumonia, COPD, and history of lung cancer with partial lobectomy and possible recurrence of lung cancer. She is currently requiring 6 L O2 per nasal cannula and maintaining adequate oxygen saturations. Continue supplemental O2 as needed with goal saturation 90% or above. Wean to goal. Continue treatment for COVID-19 as below. Consider pulmonology consult given her extensive history if further increased O2 requirements. 01/16/20 13:30 patient is 64-year-old female with history of rheumatoid arthritis, lung CA, presented emergency department on 01/12 with a cough and shortness of breath was found to have COVID-19 patient was started on Remdesivir on 01/13 today 04/21, and dexamethasone on 01/13 today 01/13 today 04/26, patient complains of shortness of breath was on 10 L of oxygen and short of breath even just walking to the toilet, oxygen was increased to 11 L, will consult nurse consultant further recommendation as patient can get worse due to Immunocompromised state with rheumatoid arthritis and lungs CA. Will continue to monitor and further recommendation to follow. (2) Pneumonia due to COVID-19 virus: Code(s): U07.1 - COVID-19; J12.89 - Other viral pneumonia Status: Acute Assessment and Plan: Symptom onset approximately 1 week prior to presentation. Patient tested positive on 01/06/2020. continue Remdesivir for up to 5 days. Started on 01/13. Continue dexamethasone for up to 10 days. Started on 01/13 supplemental O2 as noted above. Continuous pulse ox monitoring given increased O2 requirements supportive care to include bronchodilators, expectorants, and antipyretics trend acute phase reactants (3) Chronic obstructive pulmonary disease: Code(s): J44.9 - Chronic obstructive pulmonary disease, unspecified Status: Acute Assessment and Plan: Chronic. Not felt to be in acute exacerbation. Supplemental O2 as above. Continue Symbicort Albuterol prn (4) Acute dehydration: Code(s): E86.0 - Dehydration Status: Acute Assessment and Plan: Patient described poor oral intake for greater than 1 week. Noted to be dry upon presentation. She was rehydrated with 1 L IV normal saline. She appears euvolemic upon my exam. Monitor volume status closely. (5) Acute hyponatremia: Code(s): E87.1 - Hypo-osmolality and hyponatremia Status: Acute Assessment and Plan: [place] to be secondary to dehydration. Sodium has improved following IV fluid rehydration. Stable at 132 today. Monitor BMP daily (6) Chronic kidney disease, stage 3: Code(s): N18.30 - Chronic kidney disease, stage 3 unspecified Status: Inactive Assessment and Plan: creatinine appears consistent with her baseline. Monitor renal function closely. Renally dose medications and avoid nephrotoxic agents. (7) Immunosuppressed status: Code(s): D84.9 - Immunodeficiency, unspecified Status: Inactive Assessment and Plan: Patient on weekly methotrexate for management of rheumatoid arthritis. Methotrexate on hold in light of acute infection (8) Rheumatoid arthritis: Code(s): M06.9 - Rheumatoid arthritis, unspecified Status: Inactive Assessment and Plan: managed on methotrexate as noted above. (9) Anemia: Code(s): D64.9 - Anemia, unspecified Status: Acute Assessment and Plan: Hemoglobin appears decreased from her baseline. H&H remaining stable. Vital signs stable. No evidence of active bleeding. Patient recently discontinued Xarelto for DVT prophylaxis following hip repla
[2020-01-16] MEDS: lisinopriL 10 MG TABLET PO (17:43)
[2020-01-16] MEDS: amLODIPine BESYLATE 5 MG TABLET PO (17:43)
--- NOTE | 2020-01-16 18:29 | PM.CNPUL ---
Assessment and Plan Assessment and plan (1) Pneumonia due to COVID-19 virus: Code(s): U07.1 - COVID-19; J12.89 - Other viral pneumonia Status: Acute Assessment and Plan: Clinically improving - completed 10 days of dexamethasone or until discharge - once O2 sats are 90% or > on 6 liters can be discharge home on home oxygen - will need PFT and HRCT of the chest in 4 weeks and f/u in our clinic in 6 weeks. - PT/OT when able to mobilize with oxygen - will d/c spiriva and symbicort and resume once discharged. - will start duonebs Q6h and pullmicort 0.5 mg bid (2) Chronic obstructive pulmonary disease: Code(s): J44.9 - Chronic obstructive pulmonary disease, unspecified Status: Acute (3) Acute respiratory failure with hypoxia: Code(s): J96.01 - Acute respiratory failure with hypoxia Status: Acute History of Present Illness History of Present Illness Consult date: 01/16/20 Chief complaint: COVID 19 Pneumonia, Dehydration,Hyponatremia Narrative: 64 y/o chronic prior smoke, COPD, h/o Lung CA s/p lung resection in 2016 is admitted with COVID-19 and hypoxemic respiratory failure. She is feeling better, is on Remdesivir and Dexamethasone day 3 and is on 10 liter of oxygen by nasal cannula. She had a hip replacement about three weeks prior to getting sick She does not feel very short of breath despite the hypoxia and would like to start PT so that her hip can recover. She denies fever, chills and cough has diminished. Review of Systems Review of Systems: All systems reviewed & are unremarkable except as noted in HPI and below PMFSH Past Medical History Medical History (Updated 01/15/20 @ 15:31 by Felipa March PA-C) Chronic kidney disease, stage 3 Baseline creatinine is about 1.50. Chronic obstructive pulmonary disease Depression Fibromyalgia Former smoker Smoked 2 packs a day for 45 years, quit in 2016. Immunosuppressed status On methotrexate for rheumatoid arthritis. Lung cancer (~2014) Status post chemotherapy, radiation, and left upper lobectomy. Obstructive sleep apnea No longer wearing CPAP. Pulmonary embolism (~02/2015) Rheumatoid arthritis Surgical History Surgical History (Updated 01/14/20 @ 13:59 by Felipa March PA-C) History of cholecystectomy (~2006) History of sinus surgery History of total left hip arthroplasty (~11/2019) Status post partial lobectomy of lung Left upper lobectomy for lung cancer. Family History Family History (Updated 01/13/20 @ 23:15 by Cha Wu PA-C) Other Hypertension Social History Social History (Updated 01/13/20 @ 23:16 by Cha Wu PA-C) Social History: Surrogate decision maker: Celina and Victoriano Cara, children. Code status: Full code. Smoking packs per day: 2 Smoking cigarettes per day: 40.0 Years smoked: 45 Smoking pack-years: 90.00 Smoking status: Former smoker Alcohol intake: never Substance use: never Additional living arrangements comments: Patient lives in her own home in [place]. Additional occupation/education comments: On disability. Gender identity (if verbalized by the patient): Female Spiritual care concerns: No Meds Home Medications and Allergies Home Medications Medication Instructions Recorded Confirmed Type acetaminophen 650 mg PO BID PRN 01/13/20 01/13/20 History amlodipine 5 mg PO QPM 01/13/20 01/13/20 History cholecalciferol (vitamin D3) 100 mcg PO DAILY 01/13/20 01/13/20 History cyanocobalamin (vitamin B-12) 500 mcg PO DAILY 01/13/20 01/13/20 History [Vitamin B-12] cyclobenzaprine 5 mg PO DAILY 01/13/20 01/13/20 History ferrous sulfate 325 mg PO DAILY 01/13/20 01/13/20 History fluticasone furoate-vilanterol 1 inh INHALATION DAILY 01/13/20 01/13/20 History [Breo Ellipta] folic acid 1 mg PO DAILY 01/13/20 01/13/20 History gabapentin 900 mg PO TID 01/13/20 01/13/20 History hydrocodone-acetaminophen 1 tablet PO Q6H 12/19
[2020-01-16] MEDS: BUDESONIDE RESPULE NEB 0.5 MG/2 ML AMP INHALATION (20:15)
[2020-01-16] MEDS: ALBUTEROL SULFATE NEB 2.5 MG/0.5 ML INH INHALATION (20:15)
[2020-01-16] MEDS: IPRATROPIUM BR 0.02% INH SOLN 0.5 MG/2.5 ML VIAL INHALATION (20:15)
[2020-01-16] MEDS: REMDESIVIR 100 MG/NS 250 ML 100 MG/250 ML BAG 250 MG IVPB (23:15)
[2020-01-17] VITALS (18 sets, daily range): BP systolic 112–128; BP diastolic 52–60; PULSE 61–105; RESP 18–22; TEMP 36–36.6; O2SAT 92–99
[2020-01-17] MEDS: HYDROcodone/acetaminophen (*CRX) 7.5-325 MG TABLET 1 TAB PO ×4 (00:28→17:29)
[2020-01-17] MEDS: IPRATROPIUM BR 0.02% INH SOLN 0.5 MG/2.5 ML VIAL INHALATION ×4 (02:47→18:28)
[2020-01-17] MEDS: ALBUTEROL SULFATE NEB 2.5 MG/0.5 ML INH INHALATION ×2 (02:47→06:41)
[2020-01-17 04:14] LABS: Osmolality, Urine 135 mOsm/kg (50-1200)
[2020-01-17] MEDS: BUDESONIDE RESPULE NEB 0.5 MG/2 ML AMP INHALATION ×2 (06:41→18:28)
[2020-01-17 07:53] LABS: Basophils Percent Auto 0.1 % (0.2-1.2); Hemoglobin 8.3 g/dL (12.0-15.0); Immature Granulocyte Absolute 0.15 K/mm3 (0.00-0.031); Immature Granulocyte Percent A 1.7 % (0-0.5); Lymphocytes Absolute Auto 1.35 K/mm3 (0.9-3.2); Lymphocytes Percent Auto 15.2 % (18.3-44.2); Mean Corpuscular HGB Conc 30.7 g/dl (32-36); Mean Corpuscular Hemoglobin 25.8 pg (26-34); Mean Corpuscular Volume 83.9 fl (80-100); Mean Platelet Volume 9.2 fl (7.4-10.4); Monocytes Absolute Auto 0.7 K/mm3 (0.1-0.6); Monocytes Percent Auto 7.6 % (2.6-8.5); Neutrophils Absolute Auto 6.7 K/mm3 (1.3-6.7); Neutrophils Percent Auto 75.4 % (45.5-73.1); Platelet Count Result 464 k/mm3 (150-375); Red Blood Count 3.22 M/mm3 (4.2-5.4); White Blood Count 8.9 K/mm3 (4.5-10.0)
[2020-01-17 07:59] LABS: Alanine Aminotransferase 11 U/L (4-35); Albumin Level 3.4 g/dL (3.5-5.1); Alkaline Phosphatase 104 U/L (38-126); Anion Gap 8 mmol/L (8-16); Aspartate Amino Transferase 25 U/L (14-36); Bilirubin,Total 0.7 mg/dL (0.2-1.3); Blood Urea Nitrogen 26 mg/dL (7-17); CRP 2.9 mg/dL (<1.0); Calcium 9.1 mg/dL (8.4-10.2); Carbon Dioxide 26 mmol/L (22-30); Chloride 101 mmol/L (98-107); Estimated CRCL calculation 54 ml/min; Estimated Glomerular Filt Rate 50; Glucose 87 mg/dL (65-105); Potassium 4.1 mmol/L (3.4-5.0); Sodium 135 mmol/L (137-145)
[2020-01-17 08:20] LABS: Hypochromasia 1+ (NORMAL); Ovalocytes 1+ (NORMAL); Platelet Estimate Adequate (Adequate); Poikilocytosis 1+ (NORMAL)
[2020-01-17] MEDS: FERROUS SULFATE 324 MG TABLET PO (08:48)
[2020-01-17] MEDS: ENOXAPARIN 40 MG/0.4 ML SYRINGE SUB-Q ×2 (08:48→21:02)
[2020-01-17] MEDS: DEXAMETHASONE SOD PHOS INJ 4 MG/ML VIAL 6 MG IV PUSH (08:49)
[2020-01-17] MEDS: CHOLECALCIFEROL 1,000 UNITS TABLET 5000 UNITS PO (08:49)
[2020-01-17] MEDS: CYANOCOBALAMIN 500 MCG TABLET PO (08:49)
[2020-01-17] MEDS: CYCLOBENZAPRINE HCL 5 MG TABLET PO (08:49)
[2020-01-17] MEDS: PRAVASTATIN SODIUM 20 MG TABLET 40 MG PO (08:49)
[2020-01-17] MEDS: FOLIC ACID 1 MG TABLET PO (08:50)
[2020-01-17] MEDS: DOCUSATE SODIUM 100 MG CAPSULE PO ×2 (08:50→21:02)
[2020-01-17] MEDS: GABAPENTIN 300 MG CAPSULE PO ×3 (08:50→21:02)
[2020-01-17] MEDS: guaiFENesin 12 HR 600 MG TABCR PO ×2 (12:28→21:02)
--- NOTE | 2020-01-17 13:59 | PM.PNPUL ---
Progress Note: A&P Assessment and Plan (1) Pneumonia due to COVID-19 virus: Code(s): U07.1 - COVID-19; J12.89 - Other viral pneumonia Status: Acute Assessment and Plan: - continue Remdesivir for 5 days total as she is clinically improving (2) Acute respiratory failure with hypoxia: Code(s): J96.01 - Acute respiratory failure with hypoxia Status: Acute Assessment and Plan: wean high flow oxygen and attempt to switch to regular nasal cannula for sats of 88% or greather (3) COPD (chronic obstructive pulmonary disease): Code(s): J44.9 - Chronic obstructive pulmonary disease, unspecified Status: Acute Assessment and Plan: - d/c albuterol - continue Ipratropium 0.5 mg Q6h - continue pulmicort 0.5 mg Q12h - sputum culture today - prednisone 20 mg PO OD for 5 days Subjective Date/time seen: 01/17/20 13:59 Interval history: Feeling better after nebulized bronchodilators started but is starting to have tremors which is likely from albuterol. She is starting to have thick sputum production as well. Review of Systems Review of Systems: All systems reviewed & are unremarkable except as noted in HPI and below Exam Const: General: cooperative, healthy appearing, comfortable, no acute distress, well developed, alert, awake and Physically active Nutritional Appearance: overweight Orientation/consciousness: oriented to person, oriented to place, oriented to time and patient oriented x3 HENMT: Head: normal to inspection, normocephalic and atraumatic Eyes: General: appearance normal, both eyes and all related structures Neck: Neck: normal visual inspection, trachea midline and supple Resp: Effort & Inspection: normal respiratory effort Auscultation: breath sounds absent and diminished lung sounds Cardio: Jugular venous distension: no JVD Rate: regular rate Rhythm: regular rhythm Heart sounds: S1 normal heart sound present and S2 normal heart sound present GI: Inspection: normal to inspection Auscultation: normal bowel sounds Skin: General skin exam: normal color and no rashes or lesions noted Neuro: General: oriented to person, oriented to place, oriented to time and patient oriented x3 Cognition (Neuro): normal cognition Speech: normal speech Extrem: General: normal to inspection and no clubbing, cyanosis or edema Psych: Appearance: grossly normal and well kempt Mental Status: mental status grossly normal Objective Data Vital Signs Vital Signs: Vital Signs - 24 hr 01/16/20 16:00 01/16/20 20:00 01/16/20 20:30 Temperature 36.4 C L 36.4 C Pulse Rate 80 79 Respiratory Rate 18 18 18 Blood Pressure 143/52 H 126/54 L Pulse Oximetry 91 93 01/17/20 00:00 01/17/20 02:47 01/17/20 04:00 Temperature 36.0 C L 36.3 C L Pulse Rate 74 74 Respiratory Rate 20 20 18 Blood Pressure 112/60 128/58 L Pulse Oximetry 97 94 01/17/20 06:42 01/17/20 06:59 01/17/20 08:00 Temperature 36.1 C L Pulse Rate 98 105 H 96 Respiratory Rate 22 H 22 H 20 Blood Pressure 128/57 L Pulse Oximetry 94 01/17/20 09:20 01/17/20 12:00 Temperature 36.2 C L Pulse Rate 74 Respiratory Rate 18 Blood Pressure 122/53 L Pulse Oximetry 94 93 Intake/Output Intake/Output: Intake & Output 01/14/20 01/15/20 01/16/20 01/17/20 23:59 23:59 23:59 23:59 Intake Total 1860 4350 2490 720 Output Total 450 4150 2950 1200 Balance 1410 200 -460 -480 Meds/Results Medications: Active Medications Generic Name Dose Route Start Last Admin Trade Name Freq PRN Reason Stop Dose Admin Acetaminophen 650 mg 01/13/20 14:38 Acetaminophen 325 Mg Tablet PO Q4H PRN Mild Pain (1-3) or Fever Hydrocodone Bitart/Acetaminophen 1 tab 01/14/20 00:00 01/17/20 12:28 Hydrocodone/Acetaminophen (*Crx) 7.5-325 Mg Tablet PO 1 tab Q6HR NARGIS Administration Albuterol 2 puff 01/14/20 13:55 01/15/20 05:28 Albuterol Sulfate (*Sp) Aerosol 1 Puff INHALATION 2 puff
--- NOTE | 2020-01-17 14:12 | PM.IMPN ---
Progress Note: A&P Assessment and Plan (1) Acute respiratory failure with hypoxia: Code(s): J96.01 - Acute respiratory failure with hypoxia Status: Acute Assessment and Plan: Patient noted to be hypoxic upon arrival at 82%. [place] to be multifactorial secondary to COVID-19 pneumonia, COPD, and history of lung cancer with partial lobectomy and possible recurrence of lung cancer. She is currently requiring 6 L O2 per nasal cannula and maintaining adequate oxygen saturations. Continue supplemental O2 as needed with goal saturation 90% or above. Wean to goal. Continue treatment for COVID-19 as below. Consider pulmonology consult given her extensive history if further increased O2 requirements. 01/17/20 14:12 patient is 64-year-old female with history of rheumatoid arthritis, lung CA, presented emergency department on 01/12 with a cough and shortness of breath was found to have COVID-19, patient was started on Remdesivir on 01/13 today 4/5, and dexamethasone on 01/13 today 4/10, patient complains of shortness of breath was on 10 L of oxygen and short of breath even just walking to the toilet, oxygen was increased to 11 L, today patient was seen by disbursing agent started patient on duo neb, encourage her to ambulate, agrees to continue dexamethasone and Remdesivir and continue the course while in the hospital or until discharge. patient Immunocompromised state due to rheumatoid arthritis and lungs CA. Will continue to monitor and further recommendation to follow. will PT/OT evaluate. (2) Pneumonia due to COVID-19 virus: Code(s): U07.1 - COVID-19; J12.89 - Other viral pneumonia Status: Acute Assessment and Plan: Symptom onset approximately 1 week prior to presentation. Patient tested positive on 01/06/2020. continue Remdesivir for up to 5 days. Started on 01/13. Continue dexamethasone for up to 10 days. Started on 01/13 supplemental O2 as noted above. Continuous pulse ox monitoring given increased O2 requirements supportive care to include bronchodilators, expectorants, and antipyretics trend acute phase reactants (3) Chronic obstructive pulmonary disease: Code(s): J44.9 - Chronic obstructive pulmonary disease, unspecified Status: Acute Assessment and Plan: Chronic. Not felt to be in acute exacerbation. Supplemental O2 as above. Continue Symbicort Albuterol prn (4) Acute dehydration: Code(s): E86.0 - Dehydration Status: Acute Assessment and Plan: Patient described poor oral intake for greater than 1 week. Noted to be dry upon presentation. She was rehydrated with 1 L IV normal saline. She appears euvolemic upon my exam. Monitor volume status closely. (5) Acute hyponatremia: Code(s): E87.1 - Hypo-osmolality and hyponatremia Status: Acute Assessment and Plan: [place] to be secondary to dehydration. Sodium has improved following IV fluid rehydration. Stable at 132 today. Monitor BMP daily (6) Chronic kidney disease, stage 3: Code(s): N18.30 - Chronic kidney disease, stage 3 unspecified Status: Inactive Assessment and Plan: creatinine appears consistent with her baseline. Monitor renal function closely. Renally dose medications and avoid nephrotoxic agents. (7) Immunosuppressed status: Code(s): D84.9 - Immunodeficiency, unspecified Status: Inactive Assessment and Plan: Patient on weekly methotrexate for management of rheumatoid arthritis. Methotrexate on hold in light of acute infection (8) Rheumatoid arthritis: Code(s): M06.9 - Rheumatoid arthritis, unspecified Status: Inactive Assessment and Plan: managed on methotrexate as noted above. (9) Anemia: Code(s): D64.9 - Anemia, unspecified Status: Acute Assessment and Plan: Hemoglobin appears decreased from her baseline. H
--- NOTE | 2020-01-17 14:36 | PC.NURSE ---
1215 decreased pt o2 to 8l n/c high flow.
[2020-01-17] MEDS: predniSONE 20 MG TABLET PO (16:32)
--- NOTE | 2020-01-17 17:00 | PC.NURSE ---
1645 pt maintaining o2 at 95% at 8l high flow n/c decresed to 7 l.
[2020-01-17] MEDS: amLODIPine BESYLATE 5 MG TABLET PO (17:29)
[2020-01-17] MEDS: lisinopriL 10 MG TABLET PO (17:29)
[2020-01-17] MEDS: REMDESIVIR 100 MG/NS 250 ML 100 MG/250 ML BAG 250 MG IVPB (23:31)
[2020-01-18] VITALS (23 sets, daily range): BP systolic 121–135; BP diastolic 55–88; PULSE 65–88; RESP 18–24; TEMP 36–37.2; O2SAT 84–95
[2020-01-18] MEDS: IPRATROPIUM BR 0.02% INH SOLN 0.5 MG/2.5 ML VIAL INHALATION ×4 (03:46→22:04)
[2020-01-18] MEDS: HYDROcodone/acetaminophen (*CRX) 7.5-325 MG TABLET 1 TAB PO ×3 (05:23→17:58)
[2020-01-18 06:35] LABS: Basophils Percent Auto 0.1 % (0.2-1.2); Hemoglobin 8.6 g/dL (12.0-15.0); Immature Granulocyte Absolute 0.29 K/mm3 (0.00-0.031); Immature Granulocyte Percent A 3.7 % (0-0.5); Lymphocytes Absolute Auto 1.51 K/mm3 (0.9-3.2); Lymphocytes Percent Auto 19.2 % (18.3-44.2); Mean Corpuscular HGB Conc 29.7 g/dl (32-36); Mean Corpuscular Hemoglobin 25.1 pg (26-34); Mean Corpuscular Volume 84.8 fl (80-100); Monocytes Absolute Auto 0.8 K/mm3 (0.1-0.6); Monocytes Percent Auto 9.7 % (2.6-8.5); Neutrophils Absolute Auto 5.3 K/mm3 (1.3-6.7); Neutrophils Percent Auto 67.3 % (45.5-73.1); Red Blood Count 3.42 M/mm3 (4.2-5.4); Red Cell Distribution Width 20.1 % (11.5-14.5); White Blood Count 7.9 K/mm3 (4.5-10.0)
[2020-01-18 07:24] LABS: Platelet Clumps Present; Platelet Estimate Increased (Adequate)
[2020-01-18 07:25] LABS: Ovalocytes 1+ (NORMAL)
[2020-01-18 07:49] LABS: Alanine Aminotransferase 14 U/L (4-35); Albumin Level 3.4 g/dL (3.5-5.1); Alkaline Phosphatase 99 U/L (38-126); Anion Gap 9 mmol/L (8-16); Aspartate Amino Transferase 27 U/L (14-36); Bilirubin,Total 0.9 mg/dL (0.2-1.3); Blood Urea Nitrogen 24 mg/dL (7-17); CRP 4.9 mg/dL (<1.0); Calcium 9.4 mg/dL (8.4-10.2); Carbon Dioxide 28 mmol/L (22-30); Chloride 99 mmol/L (98-107); Estimated CRCL calculation 55 ml/min; Estimated Glomerular Filt Rate 50; Glucose 92 mg/dL (65-105); Potassium 4.5 mmol/L (3.4-5.0); Sodium 136 mmol/L (137-145)
--- NOTE | 2020-01-18 09:05 | PCPTNOTE ---
Attempted therapy session, Pt eating breakfast will attempt again.
[2020-01-18] MEDS: predniSONE 20 MG TABLET PO (09:09)
[2020-01-18] MEDS: CYANOCOBALAMIN 500 MCG TABLET PO (09:09)
[2020-01-18] MEDS: CYCLOBENZAPRINE HCL 5 MG TABLET PO (09:09)
[2020-01-18] MEDS: CHOLECALCIFEROL 1,000 UNITS TABLET 5000 UNITS PO (09:09)
[2020-01-18] MEDS: DEXAMETHASONE SOD PHOS INJ 4 MG/ML VIAL 6 MG IV PUSH (09:10)
[2020-01-18] MEDS: ENOXAPARIN 40 MG/0.4 ML SYRINGE SUB-Q ×2 (09:10→21:03)
[2020-01-18] MEDS: DOCUSATE SODIUM 100 MG CAPSULE PO ×2 (09:10→21:03)
[2020-01-18] MEDS: GABAPENTIN 300 MG CAPSULE PO ×3 (09:11→21:04)
[2020-01-18] MEDS: guaiFENesin 12 HR 600 MG TABCR PO ×2 (09:11→21:03)
[2020-01-18] MEDS: FOLIC ACID 1 MG TABLET PO (09:11)
[2020-01-18] MEDS: PRAVASTATIN SODIUM 20 MG TABLET 40 MG PO (09:11)
[2020-01-18] MEDS: BUDESONIDE RESPULE NEB 0.5 MG/2 ML AMP INHALATION ×2 (09:56→22:04)
[2020-01-18] MEDS: FERROUS SULFATE 324 MG TABLET PO (12:13)
--- NOTE | 2020-01-18 14:32 | PM.PNPUL ---
Progress Note: A&P Assessment and Plan (1) Pneumonia due to COVID-19 virus: Code(s): U07.1 - COVID-19; J12.89 - Other viral pneumonia Status: Acute Assessment and Plan: - continue Remdesivir for 5 days total and Dexamethsone 6 mg daily for 10 days as she is clinically improving (2) Acute respiratory failure with hypoxia: Code(s): J96.01 - Acute respiratory failure with hypoxia Status: Acute Assessment and Plan: wean high flow oxygen and attempt to switch to regular nasal cannula or oximizer oxygen for sats of 88% or greater. (3) COPD (chronic obstructive pulmonary disease): Code(s): J44.9 - Chronic obstructive pulmonary disease, unspecified Status: Acute Assessment and Plan: - continue Ipratropium 0.5 mg Q6h - continue pulmicort 0.5 mg Q12h - sputum culture pending Subjective Date/time seen: 01/18/20 14:32 Interval history: She is feeling better and anxious to go home but she's still short of breath with minimal exertion. She's becoming anxious and is very eager to go home. She's still requiring high flow oxygen at 6-8 liters. Review of Systems Review of Systems: All systems reviewed & are unremarkable except as noted in HPI and below Exam Const: General: cooperative, healthy appearing, comfortable, no acute distress, well developed, alert, awake and Physically active Nutritional Appearance: overweight Orientation/consciousness: oriented to person, oriented to place, oriented to time and patient oriented x3 HENMT: Head: normal to inspection, normocephalic and atraumatic Eyes: General: appearance normal, both eyes and all related structures Neck: Neck: normal visual inspection, trachea midline and supple Resp: Effort & Inspection: normal respiratory effort Auscultation: breath sounds absent and diminished lung sounds Cardio: Jugular venous distension: no JVD Rate: regular rate Rhythm: regular rhythm Heart sounds: S1 normal heart sound present and S2 normal heart sound present GI: Inspection: normal to inspection Auscultation: normal bowel sounds Skin: General skin exam: normal color and no rashes or lesions noted Neuro: General: oriented to person, oriented to place, oriented to time and patient oriented x3 Cognition (Neuro): normal cognition Speech: normal speech Extrem: General: normal to inspection and no clubbing, cyanosis or edema Psych: Appearance: grossly normal and well kempt Mental Status: mental status grossly normal Objective Data Vital Signs Vital Signs: Vital Signs - 24 hr 01/17/20 14:37 01/17/20 16:00 01/17/20 16:07 Temperature 36.6 C Pulse Rate 61 90 Respiratory Rate 20 22 H Blood Pressure 113/52 L Pulse Oximetry 96 99 01/17/20 16:12 01/17/20 16:23 01/17/20 16:40 Temperature Pulse Rate 92 Respiratory Rate 22 H Blood Pressure Pulse Oximetry 94 95 01/17/20 18:30 01/17/20 20:00 01/18/20 00:00 Temperature 36.6 C 36.7 C Pulse Rate 79 77 77 Respiratory Rate 20 20 20 Blood Pressure 113/59 L 131/55 L Pulse Oximetry 92 92 01/18/20 03:46 01/18/20 04:00 01/18/20 08:00 Temperature 37.2 C 36.0 C L Pulse Rate 72 65 83 Respiratory Rate 18 22 H 20 Blood Pressure 124/56 L 135/88 Pulse Oximetry 90 90 01/18/20 09:51 01/18/20 10:05 01/18/20 12:00 Temperature 36.1 C L Pulse Rate 88 78 74 Respiratory Rate 22 H 22 H 22 H Blood Pressure 127/66 Pulse Oximetry 92 01/18/20 14:31 Temperature Pulse Rate 87 Respiratory Rate 22 H Blood Pressure Pulse Oximetry 95 Intake/Output Intake/Output: Intake & Output 01/15/20 01/16/20 01/17/20 01/18/20 23:59 23:59 23:59 23:59 Intake Total 4350 2490 3160 1030 Output Total 4150 2950 2850 1000 Balance 200 -460 310 30 Meds/Results Medications: Active Medications Generic Name Dose Route Start Last Admin Trade Name Freq PRN Reason Stop Dose Admin Acetaminophen 650 mg 01/13/20 14:38 Acetaminophen 325 Mg Tablet PO Q
--- NOTE | 2020-01-18 15:48 | PM.IMPN ---
Progress Note: A&P Assessment and Plan (1) Acute respiratory failure with hypoxia: Code(s): J96.01 - Acute respiratory failure with hypoxia Status: Acute Assessment and Plan: Patient noted to be hypoxic upon arrival at 82%. [place] to be multifactorial secondary to COVID-19 pneumonia, COPD, and history of lung cancer with partial lobectomy and possible recurrence of lung cancer. She is currently requiring 6 L O2 per nasal cannula and maintaining adequate oxygen saturations. Continue supplemental O2 as needed with goal saturation 90% or above. Wean to goal. Continue treatment for COVID-19 as below. Consider pulmonology consult given her extensive history if further increased O2 requirements. 01/18/20 15:49 patient is 64-year-old female with history of rheumatoid arthritis, lung CA, presented emergency department on 01/12 with a cough and shortness of breath was found to have COVID-19, patient was started on Remdesivir on 01/13 today 01/17 06/21, will compete the course, and dexamethasone on 01/13 today 06/26, patient was complaining shortness of breath was on 10 L of oxygen and short of breath even just walking to the toilet, oxygen was increased to 11 L, patient was seen by shareholder started patient on duo neb, encourage her to ambulate, agrees to continue dexamethasone and complete course of Remdesivir and continue dexamethasone course while in the hospital or until discharge. patient Immunocompromised state due to rheumatoid arthritis, COPD and lungs CA. Today patient's symptoms have improved is requiring 6 to 7L of oxygen and not a short of breath, discussed with the shareholder recommended to continue present management 1 more day and reassess tomorrow for possible discharge, Will continue to monitor and further recommendation to follow. will PT/OT evaluate. (2) Pneumonia due to COVID-19 virus: Code(s): U07.1 - COVID-19; J12.89 - Other viral pneumonia Status: Acute Assessment and Plan: Symptom onset approximately 1 week prior to presentation. Patient tested positive on 01/06/2020. continue Remdesivir for up to 5 days. Started on 01/13. Continue dexamethasone for up to 10 days. Started on 01/13 supplemental O2 as noted above. Continuous pulse ox monitoring given increased O2 requirements supportive care to include bronchodilators, expectorants, and antipyretics trend acute phase reactants (3) Chronic obstructive pulmonary disease: Code(s): J44.9 - Chronic obstructive pulmonary disease, unspecified Status: Acute Assessment and Plan: Chronic. Not felt to be in acute exacerbation. Supplemental O2 as above. Continue Symbicort Albuterol prn (4) Acute dehydration: Code(s): E86.0 - Dehydration Status: Acute Assessment and Plan: Patient described poor oral intake for greater than 1 week. Noted to be dry upon presentation. She was rehydrated with 1 L IV normal saline. She appears euvolemic upon my exam. Monitor volume status closely. (5) Acute hyponatremia: Code(s): E87.1 - Hypo-osmolality and hyponatremia Status: Acute Assessment and Plan: [place] to be secondary to dehydration. Sodium has improved following IV fluid rehydration. Stable at 132 today. Monitor BMP daily (6) Chronic kidney disease, stage 3: Code(s): N18.30 - Chronic kidney disease, stage 3 unspecified Status: Inactive Assessment and Plan: creatinine appears consistent with her baseline. Monitor renal function closely. Renally dose medications and avoid nephrotoxic agents. (7) Immunosuppressed status: Code(s): D84.9 - Immunodeficiency, unspecified Status: Inactive Assessment and Plan: Patient on weekly methotrexate for management of rheumatoid arthritis. Methotrexate on hold in light of acute infection (8) Rheumatoid arthritis: Code(s): M06.9
--- NOTE | 2020-01-18 17:01 | HOMEO2EVAL ---
Home Oxygen Evaluation RC: Home Oxygen (O2) Evaluation Start: 01/18/20 11:05 Freq: ONCE Status: Active Protocol: RPE Activity Type Activity Date Activity User E-Sign Co-Sign Detail Recorded Client Recorded Date Recorded By Document 01/18/20 16:30 BEL [email or web address] 01/18/20 17:01 BEL Document 01/18/20 16:32 BEL [email or web address] 01/18/20 17:01 BEL Document 01/18/20 16:34 BEL [email or web address] 01/18/20 17:01 BEL Document 01/18/20 16:36 BEL [email or web address] 01/18/20 17:01 BEL Document 01/18/20 16:40 BEL [email or web address] 01/18/20 17:01 BEL Document 01/18/20 16:42 BEL [email or web address] 01/18/20 17:01 BEL Document 01/18/20 16:45 BEL [email or web address] 01/18/20 17:01 BEL Document 01/18/20 16:50 BEL [email or web address] 01/18/20 17:01 BEL 01/18/20 01/18/20 01/18/20 16:30 16:32 16:34 Home O2 Evaluation Test Phase Resting Resting Resting Oxygen Delivery Room Air Nasal Cannula Nasal Cannula Oxygen Flow Rate (L/min) 2 3 Pulse Oximetry (90-100 %) 84 L 85 L 86 L Treatment Charges O2 Evaluation 01/18/20 01/18/20 01/18/20 16:36 16:40 16:42 Home O2 Evaluation Test Phase Resting Exercise Exercise Oxygen Delivery Nasal Cannula Nasal Cannula Nasal Cannula Oxygen Flow Rate (L/min) 4 4 5 Pulse Oximetry (90-100 %) 89 L 85 L 86 L Treatment Charges 01/18/20 01/18/20 16:45 16:50 Home O2 Evaluation Test Phase Exercise Resting Oxygen Delivery Nasal Cannula Nasal Cannula Oxygen Flow Rate (L/min) 6 4 Pulse Oximetry (90-100 %) 88 L 90 Treatment Charges
[2020-01-18] MEDS: lisinopriL 10 MG TABLET PO (17:59)
[2020-01-18] MEDS: amLODIPine BESYLATE 5 MG TABLET PO (17:59)
[2020-01-18] MEDS: REMDESIVIR 100 MG/NS 250 ML 100 MG/250 ML BAG 250 MG IVPB (22:42)
[2020-01-19] VITALS: BP 123/63; PULSE 74; RESP 22; TEMP 36.9; O2SAT 91; O2SAT 92
[2020-01-19] MEDS: HYDROcodone/acetaminophen (*CRX) 7.5-325 MG TABLET 1 TAB PO ×3 (00:29→12:06)
[2020-01-19] MEDS: IPRATROPIUM BR 0.02% INH SOLN 0.5 MG/2.5 ML VIAL INHALATION ×2 (02:34→09:11)
[2020-01-19 02:36] VITALS: PULSE 92; RESP 20
[2020-01-19 04:00] VITALS: BP 116/93; PULSE 71; RESP 22; TEMP 36.4; O2SAT 93
[2020-01-19 06:48] LABS: Basophils Percent Auto 0.2 % (0.2-1.2); Eosinophils Percent Auto 0.1 % (0-4.4); Hematocrit 27.3 % (37.0-47.0); Hemoglobin 8.4 g/dL (12.0-15.0); Immature Granulocyte Absolute 0.33 K/mm3 (0.00-0.031); Immature Granulocyte Percent A 4.1 % (0-0.5); Lymphocytes Absolute Auto 1.67 K/mm3 (0.9-3.2); Lymphocytes Percent Auto 20.8 % (18.3-44.2); Mean Corpuscular HGB Conc 30.8 g/dl (32-36); Mean Corpuscular Hemoglobin 25.3 pg (26-34); Mean Corpuscular Volume 82.2 fl (80-100); Mean Platelet Volume 8.8 fl (7.4-10.4); Monocytes Absolute Auto 0.6 K/mm3 (0.1-0.6); Monocytes Percent Auto 7.8 % (2.6-8.5); Neutrophils Absolute Auto 5.4 K/mm3 (1.3-6.7); Nucleated Red Blood Cells Perc 0.2 % (0.0-0.2); Platelet Count Result 539 k/mm3 (150-375); Red Blood Count 3.32 M/mm3 (4.2-5.4); Red Cell Distribution Width 19.9 % (11.5-14.5)
[2020-01-19 07:04] LABS: Alanine Aminotransferase 18 U/L (4-35); Albumin Level 3.2 g/dL (3.5-5.1); Alkaline Phosphatase 90 U/L (38-126); Anion Gap 7 mmol/L (8-16); Aspartate Amino Transferase 29 U/L (14-36); Blood Urea Nitrogen 27 mg/dL (7-17); CRP 2.6 mg/dL (<1.0); Calcium 9.2 mg/dL (8.4-10.2); Carbon Dioxide 28 mmol/L (22-30); Chloride 100 mmol/L (98-107); Estimated CRCL calculation 41 ml/min; Estimated Glomerular Filt Rate 45; Glucose 82 mg/dL (65-105); Potassium 4.3 mmol/L (3.4-5.0); Sodium 135 mmol/L (137-145)
[2020-01-19 08:00] VITALS: BP 128/52; PULSE 82; RESP 18; TEMP 36.4; O2SAT 92
[2020-01-19] MEDS: FERROUS SULFATE 324 MG TABLET PO (08:30)
[2020-01-19 08:56] LABS: Anisocytosis 1+ (NORMAL); Hypochromasia 1+ (NORMAL); Macrocytosis 1+ (NORMAL); Ovalocytes 1+ (NORMAL); Platelet Estimate Adequate (Adequate)
[2020-01-19 09:10] VITALS: PULSE 88; RESP 20; O2SAT 92
[2020-01-19] MEDS: BUDESONIDE RESPULE NEB 0.5 MG/2 ML AMP INHALATION (09:11)
[2020-01-19 09:30] VITALS: PULSE 92; RESP 20
[2020-01-19] MEDS: CHOLECALCIFEROL 1,000 UNITS TABLET 5000 UNITS PO (09:35)
[2020-01-19] MEDS: DOCUSATE SODIUM 100 MG CAPSULE PO (09:36)
[2020-01-19] MEDS: guaiFENesin 12 HR 600 MG TABCR PO (09:36)
[2020-01-19] MEDS: GABAPENTIN 300 MG CAPSULE PO (09:36)
[2020-01-19] MEDS: CYANOCOBALAMIN 500 MCG TABLET PO (09:36)
[2020-01-19] MEDS: CYCLOBENZAPRINE HCL 5 MG TABLET PO (09:36)
[2020-01-19] MEDS: PRAVASTATIN SODIUM 20 MG TABLET 40 MG PO (09:36)
[2020-01-19] MEDS: FOLIC ACID 1 MG TABLET PO (09:36)
[2020-01-19] MEDS: ENOXAPARIN 40 MG/0.4 ML SYRINGE SUB-Q (09:37)
[2020-01-19] MEDS: DEXAMETHASONE SOD PHOS INJ 4 MG/ML VIAL 6 MG IV PUSH (09:37)
--- NOTE | 2020-01-19 11:00 | PM.DS ---
DS: Admitting Diagnosis Admitting Diagnosis Admitting Diagnosis: COVID 19 Pneumonia, Dehydration,Hyponatremia DS: Discharge Diagnosis Discharge Diagnosis (1) Acute respiratory failure with hypoxia: Code(s): J96.01 - Acute respiratory failure with hypoxia Status: Acute Assessment and Plan: Patient noted to be hypoxic upon arrival at 82%. [place] to be multifactorial secondary to COVID-19 pneumonia, COPD, and history of lung cancer with partial lobectomy and possible recurrence of lung cancer. She is currently requiring 6 L O2 per nasal cannula and maintaining adequate oxygen saturations. Continue supplemental O2 as needed with goal saturation 90% or above. Wean to goal. Continue treatment for COVID-19 as below. Consider pulmonology consult given her extensive history if further increased O2 requirements. 01/18/20 15:49 patient is 64-year-old female with history of rheumatoid arthritis, lung CA, presented emergency department on 01/12 with a cough and shortness of breath was found to have COVID-19, patient was started on Remdesivir on 01/13 today 01/17 06/21, will compete the course, and dexamethasone on 01/13 today 06/26, patient was complaining shortness of breath was on 10 L of oxygen and short of breath even just walking to the toilet, oxygen was increased to 11 L, patient was seen by shot blaster started patient on duo neb, encourage her to ambulate, agrees to continue dexamethasone and complete course of Remdesivir and continue dexamethasone course while in the hospital or until discharge. patient Immunocompromised state due to rheumatoid arthritis, COPD and lungs CA. Today patient's symptoms have improved is requiring 6 to 7L of oxygen and not a short of breath, discussed with the shot blaster recommended to continue present management 1 more day and reassess tomorrow for possible discharge, Will continue to monitor and further recommendation to follow. will PT/OT evaluate. (2) Pneumonia due to COVID-19 virus: Code(s): U07.1 - COVID-19; J12.89 - Other viral pneumonia Status: Acute Assessment and Plan: Symptom onset approximately 1 week prior to presentation. Patient tested positive on 01/06/2020. continue Remdesivir for up to 5 days. Started on 01/13. Continue dexamethasone for up to 10 days. Started on 01/13 supplemental O2 as noted above. Continuous pulse ox monitoring given increased O2 requirements supportive care to include bronchodilators, expectorants, and antipyretics trend acute phase reactants (3) Chronic obstructive pulmonary disease: Code(s): J44.9 - Chronic obstructive pulmonary disease, unspecified Status: Acute Assessment and Plan: Chronic. Not felt to be in acute exacerbation. Supplemental O2 as above. Continue Symbicort Albuterol prn (4) Acute dehydration: Code(s): E86.0 - Dehydration Status: Acute Assessment and Plan: Patient described poor oral intake for greater than 1 week. Noted to be dry upon presentation. She was rehydrated with 1 L IV normal saline. She appears euvolemic upon my exam. Monitor volume status closely. (5) Acute hyponatremia: Code(s): E87.1 - Hypo-osmolality and hyponatremia Status: Acute Assessment and Plan: [place] to be secondary to dehydration. Sodium has improved following IV fluid rehydration. Stable at 132 today. Monitor BMP daily (6) Chronic kidney disease, stage 3: Code(s): N18.30 - Chronic kidney disease, stage 3 unspecified Status: Inactive Assessment and Plan: creatinine appears consistent with her baseline. Monitor renal function closely. Renally dose medications and avoid nephrotoxic agents. (7) Immunosuppressed status: Code(s): D84.9 - Immunodeficiency, unspecified Status: Inactive Assessment and Plan: Patient on weekly methotrexate for management of rheumatoid
--- NOTE | 2020-01-19 11:10 | PCRCNOTE ---
HOME O2 SET UP WITH [facility], TANK DELIVERED TO ROOM TODAY. [facility] PHONE NUMBER [phone]
--- NOTE | 2020-01-19 14:41 | PM.PNPUL ---
Progress Note: A&P Assessment and Plan (1) Pneumonia due to COVID-19 virus: Code(s): U07.1 - COVID-19; J12.89 - Other viral pneumonia Status: Acute Assessment and Plan: - continue Remdesivir for 5 days total and Dexamethsone 6 mg daily for 10 days as she is clinically improving (2) Acute respiratory failure with hypoxia: Code(s): J96.01 - Acute respiratory failure with hypoxia Status: Acute Assessment and Plan: - will be goind home on oxygen 4-6 liters and told her to monitor and keep her sats 88% or greater. (3) COPD (chronic obstructive pulmonary disease): Code(s): J44.9 - Chronic obstructive pulmonary disease, unspecified Status: Acute Assessment and Plan: - can discharge home on resume home inhaler regimen of Breo Ellipta 100/25 mcg 1 puff daily along with Spiriva 18 mcg 1 puff daily - will prescribe Augment 875/125 mg PO bid for 7 days for acute probable bacterial bronchitis Subjective Date/time seen: 01/19/20 14:41 Interval history: Graciela is doing well today and has been weaned down to 4.5 liter per regular nasal cannula. She is still coughing up thick purulent. Review of Systems Review of Systems: All systems reviewed & are unremarkable except as noted in HPI and below Exam Const: General: cooperative, healthy appearing, comfortable, no acute distress, well developed, alert, awake and Physically active Nutritional Appearance: overweight Orientation/consciousness: oriented to person, oriented to place, oriented to time and patient oriented x3 HENMT: Head: normal to inspection, normocephalic and atraumatic Eyes: General: appearance normal, both eyes and all related structures Neck: Neck: normal visual inspection, trachea midline and supple Resp: Effort & Inspection: normal respiratory effort Auscultation: breath sounds absent and diminished lung sounds Cardio: Jugular venous distension: no JVD Rate: regular rate Rhythm: regular rhythm Heart sounds: S1 normal heart sound present and S2 normal heart sound present GI: Inspection: normal to inspection Auscultation: normal bowel sounds Skin: General skin exam: normal color and no rashes or lesions noted Neuro: General: oriented to person, oriented to place, oriented to time and patient oriented x3 Cognition (Neuro): normal cognition Speech: normal speech Extrem: General: normal to inspection and no clubbing, cyanosis or edema Psych: Appearance: grossly normal and well kempt Mental Status: mental status grossly normal Objective Data Vital Signs Vital Signs: Vital Signs - 24 hr 01/18/20 14:43 01/18/20 15:06 01/18/20 15:46 Temperature Pulse Rate Respiratory Rate 24 H Blood Pressure Pulse Oximetry 94 93 01/18/20 15:48 01/18/20 16:00 01/18/20 16:30 Temperature 36.3 C L Pulse Rate 74 Respiratory Rate 22 H Blood Pressure 121/65 Pulse Oximetry 90 90 84 L 01/18/20 16:32 01/18/20 16:34 01/18/20 16:36 Temperature Pulse Rate Respiratory Rate Blood Pressure Pulse Oximetry 85 L 86 L 89 L 01/18/20 16:40 01/18/20 16:42 01/18/20 16:45 Temperature Pulse Rate Respiratory Rate Blood Pressure Pulse Oximetry 85 L 86 L 88 L 01/18/20 16:50 01/18/20 19:40 01/18/20 20:00 Temperature 36.4 C Pulse Rate 69 Respiratory Rate 20 22 H Blood Pressure 126/55 L Pulse Oximetry 90 93 92 01/19/20 00:00 01/19/20 02:36 01/19/20 04:00 Temperature 36.9 C 36.4 C L Pulse Rate 74 92 71 Respiratory Rate 22 H 20 22 H Blood Pressure 123/63 116/93 H Pulse Oximetry 92 93 01/19/20 08:00 01/19/20 09:10 01/19/20 09:30 Temperature 36.4 C L Pulse Rate 82 88 92 Respiratory Rate 18 20 20 Blood Pressure 128/52 L Pulse Oximetry 92 92 Intake/Output Intake/Output: Intake & Output 01/16/20 01/17/20 01/18/20 01/19/20 23:59 23:59 23:59 23:59 Intake Total 2490 3160 3270 650 Output Total 4520 0930 1900 Balance -980 453 4777 146
== END 2020-01-19 13:00 | disposition home health service (06) | DRG 177 ==
LOC: ANHED 13:55 → ANH3MEDSUR 23:05
PROVIDERS: Family Medicine; Physician Assistant; Admitting Provider Student in an Organized Health Care Education/Training Program; Emergency Provider Emergency Medicine; PCP Internal Medicine Infectious Disease; Visit Provider Physician Assistant
DX: U07.1 COVID-19 (principal); J12.89 Other viral pneumonia; J96.01 Acute respiratory failure with hypoxia; J44.0 Chronic obstructive pulmonary disease with (acute) lower respiratory infection; E87.1 Hypo-osmolality and hyponatremia; D84.9 Immunodeficiency, unspecified; C34.91 Malignant neoplasm of unspecified part of right bronchus or lung; E86.0 Dehydration; N18.30 Chronic kidney disease, stage 3 unspecified; D63.1 Anemia in chronic kidney disease; G47.33 Obstructive sleep apnea (adult) (pediatric); M06.9 Rheumatoid arthritis, unspecified; M79.7 Fibromyalgia; F32.9 Major depressive disorder, single episode, unspecified; Z96.642 Presence of left artificial hip joint; Z86.711 Personal history of pulmonary embolism; Z87.891 Personal history of nicotine dependence; Z90.49 Acquired absence of other specified parts of digestive tract
CPT/HCPCS: 36415; 36600; 71045; 71275; 80048; 80053; 82375; 82565; 82570; 82728; 82805; 83050; 83615; 83735; 83930; 83935; 84300; 84443; 84460; 84484; 85014; 85018; 85025; 85027; 85610; 85730; 86140; 93005; 94618; 94640; 96374; 96375; 97116; 97161; 97165; 97530; 99285; A9270; J1100; J1650; J2405; J7040; J7512; Q9967

== ENCOUNTER 2024-12-30 13:13 | Outpatient (CLI) | payer MEDICARE, MEDICAID, SELFPAY ==
--- NOTE | ~2024-12-30 | XR_ITS ---
XR lumbar spine min 4V Indication: Rheumatoid arthritis Comparison: None Findings: Grade 1 anterolisthesis of L4 on L5. No fracture is identified. Moderate to severe loss of disc height at L1-2, L4-5 and L5-S1. Soft tissues unremarkable Impression: No acute abnormality. Reviewed, dictated and finalized at location P. WARE ENGINEERING MANAGER Impression: No acute abnormality.
--- NOTE | ~2024-12-30 | XR_ITS ---
EXAMINATION: XR foot LT 2V, 12/30/2024 13:30 SALES SUPERVISOR HISTORY: Rheumatoid arthritis COMPARISON: No comparisons available. Findings: No acute fracture or malalignment. Moderate degenerative changes in the distal interphalangeal joints, no erosions identified Soft tissues unremarkable. Impression: No acute fracture or malalignment. Reviewed, dictated and finalized at location P. S SUPERVISOR Impression: No acute fracture or malalignment.
--- NOTE | ~2024-12-30 | XR_ITS ---
EXAMINATION: XR sacroiliac joints min 3V, 12/30/2024 13:30 KNITTING TESTER HISTORY: Rheumatoid arthritis COMPARISON: No comparisons available. Findings: No acute fracture or malalignment. Sclerosis of the sacroiliac joints with no erosions or bridging osteophyte formation identified. Soft tissues unremarkable. Impression: No acute fracture or malalignment. Reviewed, dictated and finalized at location P. TING TESTER Impression: No acute fracture or malalignment.
--- NOTE | ~2024-12-30 | XR_ITS ---
PROCEDURE/PROCEDURES: XR foot RT 2V HISTORY: Rheumatoid arthritis COMPARISON(S): None. TECHNIQUE: 2 radiographic images were submitted for interpretation. FINDINGS: There is moderate plantar calcaneal spurring. Bones: The middle and distal phalanges of the fifth digit, and possibly also the fourth digit, are fused, a normal variant. There are no fractures seen. There are no destructive lesions or other lesions identified. Joints: There are no dislocations identified. There is no evidence of erosive arthropathy. IMPRESSION: No acute abnormalities are seen. No positive evidence for rheumatoid arthritis seen radiographically. Reviewed, dictated and finalized at location A. CHAIN QUILLER TENDER IMPRESSION: No acute abnormalities are seen. No positive evidence for rheumatoi d arthritis seen radiographically.
--- NOTE | ~2024-12-30 | XR_ITS ---
EXAMINATION: XR hand BI arthritis min 3V, 12/30/2024 13:30 MANAGER FINANCIAL PLANNING HISTORY: Rheumatoid arthritis COMPARISON: No comparisons available. Findings: No acute fracture or malalignment. Severe degenerative changes of the first metacarpal carpal joint with small erosions identified. Minimal degenerative changes of the distal and proximal interphalangeal joints.There is fusion noted of the left with proximal interphalangeal joint. Soft tissues unremarkable. Impression: No acute fracture or malalignment. Reviewed, dictated and finalized at location P. GER FINANCIAL PLANNING Impression: No acute fracture or malalignment.
--- OUTSIDE RECORDS SUMMARY | 2024-12-30 13:55 | XMS_ITS | Encounter Summary ---
Author Organization [facility] Familink [facility] , [facility] Address [address] [place] [phone] Phone Care Team Providers Care Well Surveying Engineer Name Role Phone Ja Cooper MD Primary Care Provider [phone] Reason for Visit * Reason Comments Med Refill Encounter Details Date Type Department Care Team (Late st Contact Info) Description 10/05/2020 Refill [facility], [place] [phone] Barry Mott DO [address] [address] Social History Tobacco Use Types Packs/Day Years Used Date Smoking Tobacco: Never Alcohol Use Standard Drinks/Week Comments No 0 (1 standard drink = 0.6 oz pur e alcohol) Comments Unknown Sex and Gender Information Value Date Recorded Sex Assigned at Not on file Legal Sex Female 2:52 PM EDT Gender Identity Not on file Sexual Orientation Not on file documented as of this encounter Plan of Treatment Upcoming Encounters Date Type Department Care Team (Late st Contact Info) Description 02/08/2025 12:30 PM SECURITY ORDERLY Office Visit [facility], [facility] [address] [facility] [address] [place] [address] Barry Mott DO [address] [address] documented as of this encounter Visit Diagnoses Not on filedocumented in this encounter Care Teams Well Surveying Engineer Relationship Specialty Start Date End Date Ja Cooper MD [address] [place] [address] PCP - General Internal Medicine 10/24/20 documented as of this encounter
--- OUTSIDE RECORDS SUMMARY | 2024-12-30 13:55 | XMS_ITS | Clinical Summary ---
Author Organization [facility] Address [address] [place] [address] Care Team Providers Care Garment Form Assembler Name Role Phone Ja Cooper MD Primary Care Provider [phone] Allergies No known active allergies Medications trazodone 50 MG tablet Take 50 mg by mouth nightly at bedtime. Active gabapentin 600 MG tablet Take 300 mg by mouth 2 (two) times daily. Active buPROPion 100 MG tablet Take 200 mg by mouth 2 (two) times daily. Active traMADol 50 MG tablet Take 50 mg by mouth every 6 (six) hours as needed for Pain. Active lisinopril 20 MG tablet Take 20 mg by mouth daily. Active pravastatin 40 MG tablet Take 40 mg by mouth daily. Active tiotropium [address] 18 mcg into inhaler and inhale daily. Active budesonide-form oterol 160-4.5 MCG/ACT inhaler Inhale 2 puffs into the lungs 2 (two) times daily. Active Albuterol Sulfate (PROAIR HFA IN) Active acetaminophen 500 MG tablet Take 500 mg by mouth every 6 (six) hours as needed for Pain. Active diphenhydrAMINE 25 MG tablet Take 25 mg by mouth every 6 (six) hours as needed for Itching. Active fluticasone furoate 27.5 MCG/SPRAY Suspension 1 spray by Each Nare route. Active chlorthalidone 25 MG tablet 09/24/2017 Active prednisoLONE acetate 1 % ophthalmic suspension 09/09/2017 Active ofloxacin 0.3 % ophthalmic solution 09/09/2017 Active ketorolac 0.5 % ophthalmic solution 09/09/2017 Active Active Problems Problem Noted Date Diagnosed Date Lumbar radiculopathy 09/29/2017 Family History Medical History Relation Comments Heart Attack Brother 1 Cancer Brother 2 pneumonia Mother Relation Status Comments Brother 1 Alive Brother 2 Alive Mother Alive Social History Tobacco Use Types Packs/Day Years Used Date Smoking Tobacco: Former Cigarettes Q uit: 2014 Smokeless Tobacco: Never Alcohol Use Standard Drinks/Week Comments No 0 (1 standard drink = 0.6 oz pur e alcohol) Comments No Sex and Gender Information Value Date Recorded Sex Assigned at Not on file Legal Sex Female 1:22 PM CDT Gender Identity Not on file Sexual Orientation Not on file Occupation Industry Job Start Date Job End Date Not on file Not on file Not on file Not on file Last Filed Vital Signs Vital Sign Reading Time Taken Comments Blood Pressure 125/59 10/10/2017 3:56 PM CDT Pulse 77 10/10/2017 3:56 PM CDT Temperature 36.6 C (97.8 F) 10/10/2017 2:45 PM CDT Respiratory Rate 20 10/10/2017 3:56 PM CDT Oxygen Saturation 99% 10/10/2017 3:56 PM CDT Inhaled Oxygen Concentration - - Weight 104.8 kg (231 lb) 10/10/2017 2:45 PM CDT Height 170.2 cm (5' 7) 10/10/2017 2:45 PM CDT Body Mass Index 36.18 10/10/2017 2:45 PM CDT Plan of Treatment Health Maintenance Due Date Last Done Comments Colorectal Cancer Screening Colonoscopy (10 Years) 1955 Hepatitis C 08/15/1973 DTaP, Tdap and Td Vaccines ( 1 - Tdap) 08/15/1974 Mammogram Screening 1995 Pneumococcal Vaccine: 50+ Years (1 of 1 - PCV) 08/15/2005 Zoster Vaccines (1 of 2) 08/15/2005 Annual Medicare Wellness Visit 08/15/2020 Dexa Scan (General) 08/15/2020 COVID-19 Vaccine ( - 2024-2 6 season) 2024 Influenza Adult (#1) 2024 12/30/2013, 12/18/2012, 10/19/2011 RSV Immunization or 60+ Years (1 - 1-dose 75+ series) 08/15/2030 Hepatitis A Vaccines Aged Out No long er eligible based on patient's age to complete this topic Meningococcal B Vaccine Aged Out No l onger eligible based on patient's age to complete this topic Meningococcal Vaccine Aged Out No tyler qi eligible based on patient's age to complete this topic RSV Immunizations Under 20 Months Aged Out No longer eligible b ased on patient's age to complete this topic Insurance MEDICARE MEDICAID Care Teams Garment Form Assembler Relationship Specialty Start Date End Date Ja Cooper MD PCP - General INTERNAL MEDICINE 09/29/17
--- OUTSIDE RECORDS SUMMARY | 2024-12-30 13:55 | XMS_ITS | Encounter Summary ---
Author Organization [facility] Care Team Providers Care Support Representative Name Role Phone Ja Cooper MD Primary Care Provider Adryan Bell MD, Danie Unavailable [phone] Jeovanny Eubanks MD Unavailable [phone] Ese Alcazar WELDER TACK Unavailable [phone] Barry Mott DO Unavailable [phone] Braxton Jansen MD Unavailable [phone] Encounter Details Date Type Department Care Team (Latest Contact Info) Description 06/09/2017 Orders Only [facility] CLINCONV ProviderRick MD [address] [place] [address] Social History Tobacco Use Types Packs/Day Years Used Date Smoking Tobacco: Heavy Smoker Comments:Smoking History Pac ks/day: 1.5 Packs Alcohol Use Standard Drinks/Week Comments No 0 (1 standard drink = 0.6 oz pur e alcohol) Comments Unknown Sex and Gender Information Value Date Recorded Sex Assigned at Not on file 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 us Historical Provider Final Res ult documented in this encounter Visit Diagnoses Not on filedocumented in this encounter Care Teams Support Representative Relationship Specialty [place] [address] [place] [address] PCP - General 03/29/14 [place] [address] [place] [address] Medical Oncologist/Hematologis t Medical Oncology 10/21/18 07/07/22 Jeovanny Eubanks MD [address] [address] Referring Physician Gastroenterology 04/12/20 [place] [address] [place] [address] Nurse Practitioner Medical Oncology 02/19/22 05/19/23 Barry Mott DO [address] [address] Consulting Physician Nephrology 07/08/22 Braxton Jansen MD [address] [address] Medical Oncologist/Hematologis t Hematology and Oncology 05/20/23 documented as of this encounter
--- OUTSIDE RECORDS SUMMARY | 2024-12-30 13:55 | XMS_ITS | Clinical Summary ---
Author Organization [facility] Address [address] [place] [address] Care Team Providers Care Maintenance Painter Apprentice Name Role Phone Ja Cooper MD Primary Care Provider Source Comments [facility],non-owned Affiliates and Associated Physician Practices is amultiple site organization consisting of ambulatory clinics and hospital sitesin [place], [place], [place]. This disclosure is being madepursuant to the Care Everywhere program and may not contain all information available regarding this patient. Last updated 17.[facility] [employer] Allergies Active Allergy Reactions Criticality Noted Date Comments Citalopram Nausea and/or Vomiting High 03/23/2015 Medications * Be aware that medications may not be up to date on this document. Alwaysverify current medications with the patient. cyclobenzaprine (FLEXERIL) 5 MG tablet Take 1 (one) tablet by mouth once daily as needed 9 Active pravastatin (PRAVACHOL) 40 MG tablet Take 1 (one) tablet by mouth once daily 0 Active albuterol HFA (PROVENTIL;VENT BLADIMIR;PROAIR) 108 (90 Base) MCG/ACT inhaler Inhale 2 puffs every 4-6 hours by inhalation route as needed for 30 days. 8 Active acetaminophen (TYLENOL) 500 MG tablet Take 1 (one) tablet by mouth Active aspirin (ASPIRIN) 81 MG tablet Take 1 (one) tablet by mouth once daily Active fluticasone-sowmya anterol (Breo Ellipta) 100-25 MCG/INH inhaler Inhale 1 (one) puff by mouth once daily Administer at the same time each day. Rinse mouth after using Active amLODIPine (NORVASC) 5 MG tablet Take 1 (one) tablet by mouth once daily Active lisinopril (PRINIVIL; ZESTRIL) 20 MG tablet Take 0.5 (one-half) tablet by mouth once daily Active Cyanocobalamin (VITAMIN B 12 PO) Take 50 mg by mouth once daily Active famotidine (Pepcid) 40 MG tablet Take 1 (one) tablet by mouth once daily as needed for Heartburn Active hydroCHLOROthia zide 12.5 MG Take 1 (one) tablet by mouth every morning 3 Active docusate sodium (DOK) 100 MG capsule Take 1 (one) capsule by mouth every 12 hours Active pregabalin (Lyrica) 100 MG capsule Take 1 (one) capsule by mouth 3 times daily Active folic acid 800 MCG tabletIndicatio ns:Methotrexate , assisted, current use Take 1 (one) tablet by mouth once daily Reduce the potential risk of methotrexate related side effects 4 Active methotrexate 2.5 MG tabletIndicatio ns:Rheumatoid Arthritis Take 3 (three) tablets by mouth every 7 days (once a week) Reasons: Rheumatoid Arthritis 36 tablet 5 Active Active Problems Problem Noted Date Diagnosed Date Iron deficiency 10/31/2022 Overview (10/31/2022): Low serum iron and low normal range ferritin but w/o recent anemia as noted by hgb/hct. If anemia develops then IV iron indicated but no need for Aranesp Rx. Generalized osteoarthritis of multiple sites Overview (10/31/2021): Experiencing chronic polyarthralgia due to noninflammatory OA and also has peripheral neuropathy (now using gabapentin). Suggest duloxetine 30 mg q.d. for pain Rheumatoid arthritis, seropositive, multiple sit es 02/26/2021 Assessment & Plan (02/26/2021 1:27 PM CUSHION STUFFER): No current findings that would suggest active synovitis despite low level persistent elevation in C-reactive protein noted but with concurrent normal sedimentation rate measurement. Will lower methotrexate down to 7.5 mg p.o. Q 7 days based upon some further reduction in her renal status with a GFR now decreased to 34 mL/minute. Will need close continued monitoring for possible relapse of active inflammatory arthritis on lower dose methotrexate as well as monthly monitoring of her lab including serum creatinine/GFR. Methotrexate, assisted, current use 02/26/2021 Assessment & Plan (10/31/2021 1:27 PM CDT): No findings suggest developing side effects from the use of methotrexate. Continue current treatment plan and recommend routine repeated monitoring laboratory testing every 12 weeks for continued safe use of this medication. Encouraged to continue daily folic acid supplementation at a minimum of 1 mg daily to reduce potential for possible methotrexate related side effects. Assessment & Plan (02/26/2021 1:28 PM CUSHION STUFFER): Reduction in GFR down to 34 mL/minute decreased from 43 mL per minute as noted 3 month earlier. Will need to lower dose methotrexate avoid the potential for developing bone marrow toxicity effects and would suspend further use of methotrexate altogether if her GFR decreases below 30 mL/minute. Will update standing monitoring lab orders to include CBC with differential and CMP Q 4 weeks for now. Strongly encouraged to discuss with her brain surgeon the recent a decline in her renal status. Resolved Problems Problem Noted Date Diagnosed Date Resolved Date Anemia in stage 3b chronic kidney disease 02/26/2021 10/31/2022 Pain in left knee 03/31/2015 10/31/2022 Encounters Date Type Department Care Team Description 12/14/2024 Telephone [facility] - Rheumatology [address], [address] [place] [address] Dylon Watkins, General from Last 3 Months Immunizations Immunization Administration Dates Next Due INFLUENZA VACCINE, TRIV. (AF LURIA, FLUZONE TRIVALENT; 6MO+) (IIV3) 12/30/2013,12/18/2012,10/19/2011 FLU VACCINE QUAD IIV4 SPLIT 0.25 ML IM ,11/27/2016,12/07/2014 FLU VACCINE TRI IIV3 SPLIT PF IM (FLUVIRIN) 11/17 INFLUENZA VACCINE 01/14/2018,10/08/2016,11/15/19 16 INFLUENZA VACCINE, QUADR. (F LUZONE; FLULAVAL; FLUARIX; AFLURIA QUADRIVALENT; 6MO+), 0.5 ML (IIV4) 01/21/2018 PNEUMOCOCCAL PPSV23 02/21/2011 TDAP (7yrs+) 02/27/2017 ZOSTER VACCINE, LIVE 10/08/2016,11/15/2015 Zoster Hzv Vacc Recombinant Inj Im 10/12/2018, Family History Medical History Relation Name Comments Glaucoma Mother Amblyopia Neg Hx Blindness Neg Hx Diabetes Neg Hx Macular Degeneration Neg Hx Retinal Detachment Neg Hx Strabismus Neg Hx Thyroid Disease Neg Hx Relation Name Status Comments Mother Social History Tobacco Use Types Packs/Day Years Used Date Smoking Tobacco: Former Smokeless Tobacco: Never Alcohol Use Standard Drinks/Week Comments Not Currently 0 (1 standard drink = 0.6 oz pur e alcohol) Comments No Sex and Gender Information Value Date Recorded Sex Assigned at Not on file Legal Sex Female 5:48 PM CUSHION STUFFER Gender Identity Not on file Sexual Orientation Not on file Last Filed Vital Signs Vital Sign Reading Time Taken Comments Blood Pressure 122/60 12/30/2023 1:22 PM CUSHION STUFFER Pulse 68 12/30/2023 1:22 PM CUSHION STUFFER Temperature 36.7 C (98 F) 12/30/2023 1:22 PM CUSHION STUFFER Respiratory Rate 16 12/30/2023 1:22 PM CUSHION STUFFER Oxygen Saturation 97% 12/30/2023 1:22 PM CUSHION STUFFER Inhaled Oxygen Concentration - - Weight 108 kg (238 lb) 12/30/2023 1:22 PM CUSHION STUFFER Height 170.2 cm (5' 7) 12/30/2023 1:22 PM CUSHION STUFFER Body Mass Index 37.28 12/30/2023 1:22 PM CUSHION STUFFER Plan of Treatment Health Maintenance Due Date Last Done Comments BONE DENSITY TESTING 1955 COLOGUARD (AGES 45-75) - COLON CA SCREENING 1955 COLON MONITORING 1955 COLONOSCOPY - COLON CA SCREENING 1955 CT COLONOGRAPHY - COLON CA SCREENING 1955 Colorectal Cancer Screening 1955 FIT - COLON CA SCREENING 1955 FLEX SIG - COLON CA SCREENING 1955 MAMMOGRAM 1955 MEDICARE AWV 12 MONTHS 1955 HEPATITIS C SCREENING 08/11/1973 Respiratory Syncytial Virus (RSV) Vaccine Pt: or over 60 yrs (1 - Risk 50-74 years 1-dose series) 08/15/2005 PNEUMOCOCCAL VACCINE 50+ (2 of 2 - PCV) 02/22/2012 02/21/2011 DEPRESSION SCREENING 02/18/2024 COVID-19 VACCINE (4 - 2024- season) 2024 02/13/2021, 05/09/2020, 04/18/2020 INFLUENZA VACCINE (#1) 2024 4, 12/16/2018, 01/21/2018, Additional history exists DTAP/TDAP/TD VACCINES (2 - Td or Tdap) 02/27/2027 02/27/2017 SCREENING FOR DIABETES 09/14/2027 5, 06/21/2024, 03/17/2024, Additional history exists ZOSTER VACCINE Completed 10/12/2018, 04/17, 10/08/2016, Additional history exists HEPATITIS B VACCINE Aged Out No longe r eligible based on patient's age to complete this topic HIB VACCINE Aged Out No longer eligi ble based on patient's age to complete this topic HPV VACCINE Aged Out No longer eligi ble based on patient's age to complete this topic MENINGOCOCCAL (Group B) VACCINE SHARED DECISION-MAKING Aged Out No longer eligible based on patient's age to complete this topic MENINGOCOCCAL GROUPS A/C/Y/W VACCINE Aged Out No longer eligible based on patient's age to complete this topic Procedures Procedure Name Priority Date/Time Associated Diagnosis Comments COMPREHENSIVE METABOLIC PANEL Routine 09/13/2024 1:04 PM CDT Methotrexate, exterminator helper termite, current use from Last 3 Months or Most Recently Relevant to Health Maintenance Results * (ABNORMAL) COMPREHENSIVE METABOLIC PANEL (09/13/2024 1:04 PM CDT) Glucose 108(H) 70 - 99 mg/dL [facility] INSURANCE BILL BUN 22 8 - 27 mg/dL [facility] INSURANCE BILL Creatinine 1.11(H) 0.57 - 1.00 mg/dL [facility] INSURANCE BILL eGFR by CKD-EPI 54(L) >59 mL/min/1.7 3 [facility] INSURANCE BILL BUN/Creatinine Ratio 20 12 - 28 [facility] INSURANCE BILL Sodium 139 134 - 144 mmol/L [facility] INSURANCE BILL Potassium 4.3 3.5 - 5.2 mmol/L [facility] INSURANCE BILL Chloride 103 96 - 106 mmol/L [facility] INSURANCE BILL CO2 22 20 - 29 mmol/L [facility] INSURANCE BILL Calcium 9.1 8.7 - 10.3 mg/dL [facility] INSURANCE BILL Protein Total 6.1 6.0 - 8.5 g/dL [facility] INSURANCE BILL Albumin 3.8(L) 3.9 - 4.9 g/dL [facility] INSURANCE BILL Globulin Total 2.3 1.5 - 4.5 g/dL [facility] INSURANCE BILL Bilirubin Total 0.4 0.0 - 1.2 mg/dL [facility] INSURANCE BILL Alkaline Phosphatase 112 44 - 121 IU/L [facility] INSURANCE BILL AST 16 0 - 40 IU/L [facility] INSURANCE BILL ALT 11 0 - 32 IU/L [facility] INSURANCE BILL Blood BLOOD SPECIMEN / Unknown 09/13/2024 1:04 PM CDT 09/13/2024 Narrative [facility] INSURANCE BILL - 09/14/2024 8:11 AM CDT Performed at: [address] - [address] [id number] Global Account Director: Solitario Edwards PhD, Phone: [phone] Dylon Watkins DO LAB - CHEMISTRY ORDERABLES Final Result [facility] INSURANCE BILL [address] [place] [address] from Last 3 Months or Most Recently Relevant to Health Maintenance Insurance [facility] MEDICARE [address] [place] [address] Care Teams Maintenance Painter Apprentice Relationship Specialty [place] [address] [place] [id number] PCP - General 03/09/15
--- OUTSIDE RECORDS SUMMARY | 2024-12-30 13:55 | XMS_ITS | Encounter Summary ---
Author Organization [facility] Facility Care Team Providers Care Extrusion Former Name Role Phone Ja Cooper MD Primary Care Provider Adryan Bell MD, Danie Unavailable [phone] Jeovanny Eubanks MD Unavailable [phone] Ese Alcazar LOCAL ANNOUNCER Unavailable [phone] Barry Mott DO Unavailable [phone] Braxton Jansen MD Unavailable [phone] Encounter Details Date Type Department Care Team (Latest Contact Info) Description 09/29/2015 Orders Only [facility] CLINCONV ProviderRick MD [address] [place] [id number] Social History Tobacco Use Types Packs/Day Years Used Date Smoking Tobacco: Never Assessed Comments Unknown Sex and Gender Information Value Date Recorded Sex Assigned at Not on file Legal Sex Female 10:18 AM ELECTRONICS INSTRUCTOR Gender Identity Not on file Sexual Orientation Not on file documented as of this encounter Plan of Treatment Not on file documented as of this encounter Procedures Procedure Name Priority Date/Time Associated Diagnosis Comments CARDIOLOGY REPORT 09/29/2015 12: 00 AM CDT documented in this encounter Results * CARDIOLOGY REPORT (09/29/2015 12:00 AM CDT) Anatomical Region Laterality Modality Other Narrative 09/29/2015 12:00 AM CDT Ordered by an unspecified provider. us Historical Provider [facility] Final Result documented in this encounter Visit Diagnoses Not on filedocumented in this encounter Care Teams Extrusion Former Relationship Specialty [place] [address] [place] [id number] PCP - General 03/29/14 [place] [address] [place] [id number] Medical Oncologist/Hematologis t Medical Oncology 10/21/18 07/07/22 Jeovanny Eubanks MD [address] [address] Referring Physician Gastroenterology 04/12/20 Ese Alcazar, LOCAL ANNOUNCER [address] [address] Nurse Practitioner Medical Oncology 02/19/22 05/19/23 Barry Mott DO [address] [address] Consulting Physician Nephrology 07/08/22 Braxton Jansen MD [address] [address] Medical Oncologist/Hematologis t Hematology and Oncology 05/20/23 documented as of this encounter
--- OUTSIDE RECORDS SUMMARY | 2024-12-30 13:55 | XMS_ITS | Encounter Summary ---
Author Organization [facility] [employer] [facility] , [facility] Address [address] [place] [phone] Phone Care Team Providers Care Financial Examiner Name Role Phone Ja Cooper MD Primary Care Provider [phone] Reason for Visit * Reason Comments Med Refill Encounter Details Date Type Department Care Team (Late st Contact Info) Description 05/10/2023 Refill [facility], [place] [phone] Barry Mott DO [address] [address] Social History Tobacco Use Types [...] st Contact Info) Description 02/08/2025 12:30 PM NATUROPATHIC PHYSICIAN Office Visit [facility], [facility] [address] [facility] [address] [place] [address] Barry Mott DO [address] [address] documented as of this encounter Visit Diagnoses Not on filedocumented in this encounter Care Teams Financial Examiner Relationship Specialty Start Date End Date Ja Cooper MD [address] [place] [address] PCP - General Internal Medicine 10/24/20 documented as of this encounter
--- OUTSIDE RECORDS SUMMARY | 2024-12-30 13:55 | XMS_ITS ---
Author Organization [facility] Address [address] [place] [address] Care Team Providers Care Broke Beater Name Role Phone Ja Cooper MD Primary Care Provider Jeovanny Eubanks MD Unavailable [phone] Barry Mott DO Unavailable [phone] Braxton Jansen MD Unavailable [phone] Active Problems Problem Noted Date Diagnosed Date History of lung cancer 10/23/2023 Abnormal PET scan, lung 10/23/2023 Iron deficiency 10/31/2022 Overview (03/16/2024): Low serum iron and low normal range ferritin but w/o recent anemia as noted by hgb/hct. If anemia develops then IV iron indicated but no need for Aranesp Rx. Generalized osteoarthritis of multiple sites Overview (03/16/2024): Experiencing chronic polyarthralgia due to noninflammatory OA and also has peripheral neuropathy (now using gabapentin). Suggest duloxetine 30 mg q.d. for pain Pain of left sacroiliac joint 06/05/2021 Partial thickness rotator cuff tear 05/24/2021 History of total hip arthroplasty 05/24/2021 Rheumatoid arthritis, seropositive, multiple sit es 02/26/2021 Overview (06/11/2021): Last Assessment & Plan: No current findings that would suggest active [...] monitoring of her lab including serum creatinine/GFR. Fatigue 01/18/2021 Leukocytosis 01/18/2021 Pulmonary embolism 01/18/2021 Mild recurrent major depression 01/18/2021 Retinal disorder 01/18/2021 Iron deficiency anemia due to chronic blood loss 09/21/2020 Trochanteric bursitis of left hip 04/26/2020 Anemia 04/12/2020 Stage 3 chronic kidney disease 07/29/2019 Carpal tunnel syndrome 03/29/2019 Hypertension 12/31/2017 Cancer of bronchus of left upper lobe 10/15/2017 Neuropathy, peripheral 05/29/2017 Palpitations 05/29/2017 Tachycardia 05/21/2017 COPD (chronic obstructive pulmonary disease) 06/2015 Overview (08/03/2018): Patient has moderate COPD. Continue Symbicort 160/4.5, Spiriva, and albuterol. Dyspnea 08/22/2015 Overview (08/03/2018): Patient has history of dyspnea with exertion. She has underlying moderate COPD likely contributing to etiology. She was also diagnosed with pulmonary embolism, therapy with warfarin completed after one year. History of tobacco use 08/22/2015 Overview (08/03/2018): She has quit tobacco Sleep apnea 08/22/2015 Overview (08/03/2018): She has not started CPAP machine or followed with her physician at [facility] due to recent diagnosis of cancer and ongoing treatments. I've advised her to reestablish care with sleep medicine service 07/30/17 Patient reports that she did have Squamous cell carcinoma of bronchus in left uppe r lobe 08/22/2015 Non-small cell carcinoma of lung 02/01/2015 Chronic obstructive bronchitis 09/17/2012 Overview (05/30/2016): COPD bronchitis Arthralgia 09/17/2012 Overview (05/30/2016): Joint pain Hyperlipidemia 09/17/2012 Overview (05/30/2016): Hyperlipidemia Impaired glucose tolerance 09/17/2012 Overview (05/30/2016): Glucose intolerance (impaired glucose tolerance) Current Treatment and Therapy Plans IV Maintenance Therapy Plan* Plan Start Date:05/19/2024 Plan Provider:Braxton Jansen MD Linked Problems Cancer of bronchus of left u pper lobe (HCC)Non-small cell lung cancer, unspecified laterality (HCC) Treatment Medications No medications scheduled. Other Current Plans darbepoetin (ARANESP) Injection every 2 weeks* Plan Start Date:02/06/2022 Plan Provider:Ese Alcazar NP Linked Problems Anemia due to stage 3a chron ic kidney disease (HCC)Stage 3 chronic kidney disease, unspecified whether stage 3a or 3b CKD (HCC) Treatment Medications No medications scheduled. iron dextran (INFED) infusion* Plan Start Date:05/19/2024 Plan Provider:Braxton Jansen MD Linked Problems Iron deficiency anemia due t o chronic blood loss Treatment Medications No medications scheduled. Past Treatment and Therapy Plans Lifetime Dose Tracking * Chemical Lifetime Dose Automatic Entry Manual Entr y Fluoro Time 2 minutes 2 minutes 0 minutes Air kerma at the reference point (Ka,r) 1.33 mGy 1 .33 mGy 0 mGy DLP 814 mGycm 814 mGycm 0 mGycm
--- OUTSIDE RECORDS SUMMARY | 2024-12-30 13:55 | XMS_ITS | Clinical Summary ---
Author Organization [facility] Care Team Providers Care Lead Electrician Name Role Phone Unavailable Primary Care Provider Unavailabl e Social History Tobacco Use Types Packs/Day Years Used Date Smoking Tobacco: Never Assessed Comments Unknown Sex and Gender Information Value Date Recorded Sex Assigned at Not on file Legal Sex Female 9:14 PM CDT Gender Identity Not on file Sexual Orientation Not on file Plan of Treatment Not on file
--- OUTSIDE RECORDS SUMMARY | 2024-12-30 13:55 | XMS_ITS | Encounter Summary ---
Author Organization [facility] [employer] [facility] Address [address] [place] [phone] Phone Care Team Providers Care Crew Leader/Control Room Operator Name Role Phone Ja Cooper MD Primary Care Provider [phone] Reason for Visit * Reason Comments Med Refill Encounter Details Date Type Department Care Team (Late st Contact Info) Description 04/19/2023 Refill [facility], [place] [phone] Barry Mott DO [address] [address] Social History Tobacco Use Types [...] st Contact Info) Description 02/08/2025 12:30 PM PRINTED CIRCUIT BOARD PANELS TRIMMER Office Visit [place] [facility], [facility] [address] [facility] [address] [place] [address] Barry Mott DO [address] [address] documented as of this encounter Visit Diagnoses Not on filedocumented in this encounter Care Teams Crew Leader/Control Room Operator Relationship Specialty Start Date End Date Ja Cooper MD [address] [place] [address] PCP - General Internal Medicine 10/24/20 documented as of this encounter
--- OUTSIDE RECORDS SUMMARY | 2024-12-30 13:55 | XMS_ITS | Clinical Summary ---
Author Organization [facility] Address [address] [place] [address] Care Team Providers Care Cnc Router Operator Name Role Phone Ja Cooper MD Primary Care Provider Jeovanny Eubanks MD Unavailable [phone] Barry Mott DO Unavailable [phone] Braxton Jansen MD Unavailable [phone] Allergies Active Allergy Reactions Criticality Noted Date Comments Citalopram Nausea And Vomiting, Nausea only High 03/23/2015 Levonorgestrel-Ethinyl Estrad Unknown Low 05/29/2017 Medications pravastatin (PRAVACHOL) 40 mg tablet Take 1 tablet (40 mg total) by mouth nightly 08/29/19 18 Active acetaminophen (TYLENOL) 500 mg tablet Take 2 tablets (1,000 mg total) by mouth every 6 (six) hours as needed for pain or headaches Active cyclobenzapri ne (FLEXERIL) 5 mg tablet TAKE 1 TABLET BY MOUTH ONCE DAILY NEEDED FOR 14 DAYS 1 09/19/19 19 Active amLODIPine (NORVASC) 5 mg tablet Take 1 tablet (5 mg total) by mouth nightly at bedtime. 09/28/19 20 Active aspirin 81 mg enteric coated tablet Take 1 tablet (81 mg total) by mouth daily Act paz DOK 100 mg capsule Take 1 capsule (100 mg total) by mouth daily 01/19/20 20 Active folic acid (FOLVITE) 1 mg tablet Take 1 tablet (1,000 mcg total) by mouth daily 12/09/19 20 Active methotrexate 2.5 mg tabletIndicat ions:Rheumato id Arthritis Take 3 tablets (7.5 mg total) by mouth every 7 days Friday01/31/20 20 Active lisinopriL (PRINIVIL,ZES TRIL) 10 mg tablet Take 1 tablet (10 mg total) by mouth nightly 04/02/19 21 Active fluticasone furoate-vilan teroL (BREO ELLIPTA) 100-25 mcg/dose diskus inhaler Inhale 1 puff daily Active famotidine (PEPCID) 40 mg tablet Take by mouth daily as needed 12/05/19 22 Active hydroCHLOROth iazide (HYDRODIURIL) 12.5 mg tablet hydrochlorothiazide 12.5 mg tablet TAKE 1 TABLET BY MOUTH ONCE DAILY IN THE MORNING 06/26/19 23 Active pregabalin (LYRICA) 100 mg capsule Take 1 capsule (100 mg total) by mouth 3 (three) times a day 01/09/20 23 Active ROPivacaine (NAROPIN) 5 mg/mL (0.5 %) injection 06/12/19 23 Active traMADoL (ULTRAM) 50 mg tablet 08/20/19 24 Active oxygenIndicat ions:Dyspnea Administer 2 L/min into each nostril as needed Active pantoprazole DR (PROTONIX) 40 mg EC tablet Take 1 tablet (40 mg total) by mouth daily 02/22/19 25 Active ergocalcifero l (VITAMIN D) 50,000 unit capsule Take 1 capsule (50,000 Units total) by mouth once a week 02/03/20 24 Active albuterol HFA (PROVENTIL HFA,VENTOLIN HFA,PROAIR HFA) 90 mcg/actuation inhaler Inhale 2 puffs every 6 (six) hours as needed for wheezing 9 g 08/13/19 25 Active umeclidinium (Incruse Ellipta) 62.5 mcg/actuation blister with device Inhale 1 puff (62.5 mcg total) daily 3 each 08/13/19 25 Active Active Problems Problem Noted Date Diagnosed [...] machine or followed with her physician at [facility] due to recent diagnosis of [...] Overview (05/30/2016): Glucose intolerance (impaired glucose tolerance) Encounters Date Type Department Care Team Description 12/07/2024 Telephone [facility] [address] [place] [address] [place] [phone] Leonor Anderson from Last 3 Months Immunizations Immunization Administration Dates Next Due Influenza, Quadrivalent, Spl it, Intramuscular 12/16/2018,11/27/2016,12/07/2014 Influenza, Quadrivalent, Spl it, Preservative Free, Intramuscular 01/21/2018 Influenza, Trivalent, High D ose, Split, Preservative Free, Intramuscular 11/27/2023 Influenza, Trivalent, IM (MDV) 12/30/2013,2012,10/19/2011 Influenza, Trivalent, Preser vative Free, Intramuscular 11/30/2014 Influenza, Unspecified 01/14/2018,10/08/2016, Pfizer SARS-CoV-2 Monovalent Vaccination (12+ Yrs) PURPLE 02/13/2021,05/09/2020,04/18/2020 Pneumococcal Polysaccharide PPV23 02/21/2011 Tdap 02/27/2017 ZOSTER LIVE 10/08/2016,11/15/2015 ZOSTER Recombinant 10/12/2018,05/03/2018 Surgical History Surgery Date Site/Laterality Comments LAPAROSCOPIC CHOLECYSTECTOMY 02/17/2006 - 02/16/2007 lap deon COLONOSCOPY HIP SURGERY 12/15/2019 Left THR SINUS SURGERY CATARACT EXTRACTION Left ORAL SURGERY KNEE SURGERY Right R/T FX AGE 8 THORACOTOMY 02/17/2014 - 02/16/2015 Left WITH BRONCHOSCOPY JOINT REPLACEMENT Left LEFT HIP REPLACEMENT Medical History Medical History Date Comments Lung cancer (HCC) NON SMALL CELL LUNG CANCER LEFT Hyperlipidemia Hypertension Palpitations H/O HAS NOT SEEN CARDIOLOGY IN OVER A YEAR AND DENIES ANY ISSUES Tachycardia H/O IN PAST Pulmonary emboli (HCC) POST OP 2 015 Impaired glucose tolerance H/O I N PAST STATES NO RECENT ISSUES Stage 3 chronic kidney disease (HCC) Arthralgia Carpal tunnel syndrome BOTH HAND S Dyspnea Fatigue Sleep apnea UNABLE TO TOLERA TE CPAP Neuropathy, peripheral FEET COPD (chronic obstructive pu lmonary disease) Obesity GERD (gastroesophageal reflux disease) Oxygen dependent 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 Wears glasses PRESCRIPTION FOR READING Full dentures Family History Medical History Relation Name Comments Lung cancer Father Cancer -lung; C ause of : Cancer -lung Arthritis Mother arthritis; Other Mother Hernia; Relation Name Status Comments Father (Age 70) Maternal Grandfather Maternal Grandmother Mother Paternal Grandfather Paternal Grandmother Social History Tobacco Use Types Packs/Day Years Used Date Smoking Tobacco: Former Cigarettes 2.5 45 1 970 - 2015 Smokeless Tobacco: Never Tobacco Cessation:Counseling Given: Not Answered Comments:Smoking History Packs/day: 1.5 Packs Alcohol Use Standard Drinks/Week Comments No 0 (1 standard drink = 0.6 oz pur e alcohol) AUDIT-C Answer Date Recorded Q1: How often do you have a drink containing alcohol? Never 11/19/2023 Q2: How many drinks containi ng alcohol do you have on a typical day when you are drinking? Patient does not drink Q3: How often do you have si x or more drinks on one occasion? Never 11/19/2023 Personal Safety Answer Date Recorded Have you ever been in or are you currently in a harmful physical or emotional relationship or is someone making you feel afraid or unsafe? 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 Gender Identity Not on file Sexual Orientation Not on file Last Filed Vital Signs Vital Sign Reading Time Taken Comments Blood Pressure 123/65 08/12/2024 1:16 PM CDT Pulse 72 08/12/2024 1:16 PM CDT Temperature 36.5 C (97.7 F) 08/12/2024 1:16 PM CDT Respiratory Rate 18 08/12/2024 1:16 PM CDT Oxygen Saturation 95% 08/12/2024 1:16 PM CDT Inhaled Oxygen Concentration - - Weight 108.9 kg (240 lb) 08/12/2024 1:16 PM CDT Height 170.2 cm (5' 7) 08/12/2024 1:16 PM CDT Body Mass Index 37.59 08/12/2024 1:16 PM CDT Plan of Treatment Health Maintenance Due Date Last Done Comments Colon Cancer Screening-Colonoscopy 1955 Depression Screening 1955 Hepatitis C Screening 1955 Osteoporosis Screening-Bone Density Scan 1955 Hepatitis B Screening 08/15/1973 Pneumococcal vaccine 65+ (2 of 2 - PCV) 02/22/2012 02/21/2011 Well Visit 65+ 08/15/2020 Covid-19 Vaccine (4 - 2024-2 6 season) 2024 02/13/2021, 05/09/2020, 04/18/2020 Influenza Vaccine (#1) 2024 , 12/16/2018, 01/21/2018, Additional history exists Breast Cancer Screening-Mammogram 11/02/2024 024 Fall Risk Assessment 11/18/2024 11/19/2023 DTaP/Tdap/Td Vaccine (2 - Td or Tdap) 02/27/2027 02/27/2017 Zoster Vaccine Completed 10/12/2018, 04/17, 10/08/2016, Additional history exists Medical Devices Implanted Type Area Counsel Device Identifier Shelf Expiration Date Model / Serial / Lot Hip Replacement Left: Hip Procedures Procedure Name Priority Date/Time Associated Diagnosis Comments SCREENING MAMMOGRAM Schedule Routine, Read Routine (OP Routine) 11/03/2023 1:11 PM CDT from Last 3 Months or Most Recently Relevant to Health Maintenance Results * Screening Mammogram (11/03/2023 1:11 PM CDT) Anatomical Region Laterality Modality Breast N/A Mammography us Historical Provider MD LISA MAMMO PROCEDURES Linda l Result from Last 3 Months or Most Recently Relevant to Health Maintenance [place] [address] [facility] MEDICARE [facility] [employer] [facility] [employer] Advance Directives For more information, please contact: [phone] * Full Code (Latest Code Status on File) Date Activated Date Inactivated Comments 11/19/2023 10:55 AM 11/19/2023 5:12 PM Care Teams Cnc Router Operator Relationship Specialty Start Date End Date Ja Cooper MD [address] [place] [id number] PCP - General 03/29/14 [place] [address] [place] [id number] Referring Physician Gastroenterology 04/12/20 Barry Mott DO [address] [address] Consulting Physician Nephrology 07/08/22 Braxton Jansen MD [address] [address] Medical Oncologist/Hematologis t Hematology and Oncology 05/20/23
--- OUTSIDE RECORDS SUMMARY | 2024-12-30 13:55 | XMS_ITS | Clinical Summary ---
Author Organization [facility] Facility Address [address] [address] Care Team Providers Care Wool Washer Feeder Name Role Phone Ja Cooper MD Primary Care Provider [phone] Medications ergocalciferol 1.25 MG (83201 UT) capsule Take 1 capsule (50,000 Units total) by mouth 1 (one) time per week 12 capsule 1 02/03/2024 Active hydroCHLOROthia zide 12.5 MG tablet TAKE 1 TABLET BY MOUTH IN THE MORNING 90 tablet 06/30/2024 Active amLODIPine (NORVASC) 5 MG tablet TAKE 1 TABLET BY MOUTH AT BEDTIME 90 tablet 10/11/2024 Active lisinopril 10 MG tablet TAKE 1 TABLET BY MOUTH AT BEDTIME 90 tablet 10/11/2024 Active Encounters Date Type Department Care Team Description 10/09/2024 Refill [facility], [address] [address] Barry Mott DO from Last 3 Months Social History Tobacco Use Types Packs/Day Years [...] Sign Reading Time Taken Comments Blood Pressure 120/60 02/03/2024 12:32 PM ORTHODONTIC TREATMENT COORDINATOR Pulse 79 02/03/2024 12:32 PM ORTHODONTIC TREATMENT COORDINATOR Temperature 36.1 C (97 F) 02/03/2024 12:32 PM ORTHODONTIC TREATMENT COORDINATOR Respiratory Rate 18 02/03/2024 12:32 PM ORTHODONTIC TREATMENT COORDINATOR Oxygen Saturation 98% 02/03/2024 12:32 PM ORTHODONTIC TREATMENT COORDINATOR Inhaled Oxygen Concentration - - Weight 106 kg (234 lb) 02/03/2024 12:32 PM ORTHODONTIC TREATMENT COORDINATOR Height 170.2 cm (5' 7) 10/30/2021 12:28 PM CDT Body Mass Index 36.65 10/30/2021 12:28 PM CDT Plan of Treatment Upcoming Encounters Date Type Department Care Team (Late st Contact Info) Description 02/08/2025 12:30 PM ORTHODONTIC TREATMENT COORDINATOR Office Visit [facility], [facility] [address] [facility] [address] [place] [address] Barry Mott DO [address] [facility] [address] [place] [address] Health Maintenance Due Date Last Done Comments Breast Cancer Screening 1955 Colorectal Cancer Screening: Annual FOBT 08/15/2004 Colorectal Cancer Screening: Colonoscopy 08/15/2004 Colorectal Cancer Screening: Sigmoidoscopy 08/15/2004 Pneumococcal Vaccine: 50+ Years (2 of 2 - PCV) 02/22/2012 02/21/2011 Influenza Vaccine (#1) 2024 4, 12/16/2018, 01/21/2018, Additional history exists Pneumococcal Vaccine: Peds (0 to 5 Years) and At-Risk Patients (6 to 49 Years) Discontinued 02/21/2011 Hepatitis B Vaccine Aged Out No longe r eligible based on patient's age to complete this topic Insurance Medicare Medicaid [place] Care Teams Wool Washer Feeder Relationship Specialty Start Date End Date aJ Cooper MD [address] [place] [address] PCP - General Internal Medicine 10/24/20
== END 2024-12-30 13:14 | disposition home or self-care (01) ==
PROVIDERS: PCP Internal Medicine Infectious Disease; Visit Provider Internal Medicine
DX: M06.9 Rheumatoid arthritis, unspecified (principal)
CPT/HCPCS: 72110; 72202; 73130; 73620